=== PATIENT | female | born 1940 | race African-American/Black ===

== ENCOUNTER → 2016-12-14 | Outpatient (CLI) | payer MEDICARE ==
[2016-12-14 11:32] LABS: HEMOGLOBIN 12.8 g/dL (12.0-15.5); HGB HCT DIFFERENCE 0.4; MEAN CORPUSCULAR HEMOGLOBIN 33.3 pg (27.0-33.4); MEAN CORPUSCULAR HGB CONC 33.6 g/dL (32.0-36.0); MEAN CORPUSCULAR VOLUME 99 fl (80-97); RED BLOOD COUNT 3.84 10^6/uL (3.72-5.28); RED CELL DISTRIBUTION WIDTH 15.8 % (11.5-14.0); WHITE BLOOD COUNT 4.7 10^3/uL (4.0-10.5)
[2016-12-14 11:37] LABS: AMORPHOUS SEDIMENT,URINE TRACE /HPF; APPEARANCE,URINE CLOUDY; BILIRUBIN,URINE NEGATIVE (NEGATIVE); GLUCOSE, URINE NEGATIVE (NEGATIVE); KETONES,URINE NEGATIVE (NEGATIVE); LEUKOCYTE ESTERASE,URINE NEGATIVE (NEGATIVE); NITRITE,URINE NEGATIVE (NEGATIVE); PROTEIN,URINE 100 mg/dL (NEGATIVE); URINE SPECIFIC GRAVITY 1.016; UROBILINOGEN,URINE NEGATIVE mg/dL (<2.0)
[2016-12-14 11:55] LABS: ANION GAP 12 (5-19); BLOOD UREA NITROGEN 19 mg/dL (7-20); CALCIUM 9.5 mg/dL (8.4-10.2); CARBON DIOXIDE 27 mmol/L (22-30); CHLORIDE 105 mmol/L (98-107); CREATININE RESULT 0.99 mg/dL (0.52-1.25); GLUCOSE 83 mg/dL (75-110); POTASSIUM 4.4 mmol/L (3.6-5.0)
== END ==
LOC: OD 10:02
PROVIDERS: ATTEND Internal Medicine Nephrology
DX: I12.9 Hypertensive chronic kidney disease with stage 1 through stage 4 chronic kidney disease, or unspecified chronic kidney disease (principal); N18.2 Chronic kidney disease, stage 2 (mild); R80.9 Proteinuria, unspecified; E87.5 Hyperkalemia
CPT/HCPCS: 36415; 80048; 81001; 83735; 85027

== ENCOUNTER → 2017-08-17 | Outpatient (CLI) | payer MEDICARE ==
[2017-08-17 12:30] LABS: ABSOLUTE EOSINOPHILS # (AUTO) 0.1 10^3/uL (0.0-0.6); ABSOLUTE LYMPHOCYTES (AUTO) 1.8 10^3/uL (0.5-4.7); ABSOLUTE MONOCYTES (AUTO) 0.6 10^3/uL (0.1-1.4); ABSOLUTE NEUT (AUTO) 2.5 10^3/uL (1.7-8.2); BASOPHILS % (AUTO) 0.8 % (0-2); EOSINOPHILS % (AUTO) 2.5 % (0-6); LYMPHOCYTES % (AUTO) 35.3 % (13-45); MEAN CORPUSCULAR HEMOGLOBIN 33.9 pg (27.0-33.4); MEAN CORPUSCULAR HGB CONC 34.2 g/dL (32.0-36.0); MEAN CORPUSCULAR VOLUME 99 fl (80-97); RED BLOOD COUNT 3.83 10^6/uL (3.72-5.28); RED CELL DISTRIBUTION WIDTH 14.9 % (11.5-14.0); SEGMENTED NEUTROPHILS % (AUTO) 49.4 % (42-78); WHITE BLOOD COUNT 5.1 10^3/uL (4.0-10.5)
[2017-08-17 12:55] LABS: ALANINE AMINOTRANSFERASE 28 U/L (9-52); ALBUMIN 3.7 g/dL (3.5-5.0); ALKALINE PHOSPHATASE 102 U/L (38-126); ANION GAP 10 (5-19); ASPARTATE AMINO TRANSFERASE 44 U/L (14-36); BILIRUBIN,DIRECT 0.3 mg/dL (0.0-0.4); BILIRUBIN,TOTAL 0.6 mg/dL (0.2-1.3); BLOOD UREA NITROGEN 18 mg/dL (7-20); CALCIUM 9.4 mg/dL (8.4-10.2); CARBON DIOXIDE 29 mmol/L (22-30); CHLORIDE 105 mmol/L (98-107); CHOLESTEROL 144.76 mg/dL (0-200); CREATININE RESULT 1.02 mg/dL (0.52-1.25); Direct HDL 45 mg/dL (>40); GLUCOSE 82 mg/dL (75-110); POTASSIUM 3.9 mmol/L (3.6-5.0); SODIUM 143.8 mmol/L (137-145); TRIGLYCERIDES 90 mg/dL (<150)
[2017-08-17 13:06] LABS: DIRECT LDL 85 mg/dL (<100)
== END ==
LOC: OD 11:18
PROVIDERS: ATTEND Internal Medicine
DX: I12.9 Hypertensive chronic kidney disease with stage 1 through stage 4 chronic kidney disease, or unspecified chronic kidney disease (principal); N18.9 Chronic kidney disease, unspecified; J44.9 Chronic obstructive pulmonary disease, unspecified; E78.5 Hyperlipidemia, unspecified; R53.82 Chronic fatigue, unspecified
CPT/HCPCS: 36415; 80053; 80061; 84443; 85025

== ENCOUNTER → 2017-12-20 | Outpatient (CLI) | payer MEDICARE ==
[2017-12-20 11:45] LABS: HEMATOCRIT 41.7 % (36.0-47.0); MEAN CORPUSCULAR HEMOGLOBIN 33.7 pg (27.0-33.4); MEAN CORPUSCULAR HGB CONC 33.6 g/dL (32.0-36.0); MEAN CORPUSCULAR VOLUME 100 fl (80-97); PLATELET COUNT 242 10^3/uL (150-450); RED BLOOD COUNT 4.15 10^6/uL (3.72-5.28); RED CELL DISTRIBUTION WIDTH 15.2 % (11.5-14.0); WHITE BLOOD COUNT 5.1 10^3/uL (4.0-10.5)
[2017-12-20 11:51] LABS: APPEARANCE,URINE SLIGHTLY-CLOUDY; BILIRUBIN,URINE NEGATIVE (NEGATIVE); COLOR,URINE YELLOW; GLUCOSE, URINE NEGATIVE (NEGATIVE); KETONES,URINE NEGATIVE (NEGATIVE); LEUKOCYTE ESTERASE,URINE NEGATIVE (NEGATIVE); NITRITE,URINE NEGATIVE (NEGATIVE); PROTEIN,URINE >=500 mg/dL (NEGATIVE); URINE SPECIFIC GRAVITY 1.016; UROBILINOGEN,URINE NEGATIVE mg/dL (<2.0)
[2017-12-20 12:12] LABS: ANION GAP 5 (5-19); BLOOD UREA NITROGEN 19 mg/dL (7-20); CARBON DIOXIDE 33 mmol/L (22-30); CHLORIDE 105 mmol/L (98-107); GLUCOSE 85 mg/dL (75-110); POTASSIUM 5.1 mmol/L (3.6-5.0); SODIUM 143.2 mmol/L (137-145)
== END ==
LOC: OD 10:50
PROVIDERS: ATTEND Internal Medicine Nephrology
DX: N18.2 Chronic kidney disease, stage 2 (mild) (principal); R80.9 Proteinuria, unspecified; E87.5 Hyperkalemia
CPT/HCPCS: 36415; 80048; 81001; 83735; 85027

== ENCOUNTER → 2018-01-14 | Outpatient (CLI) | payer MEDICARE ==
[2018-01-14 10:55] LABS: APPEARANCE,URINE CLOUDY; BILIRUBIN,URINE NEGATIVE (NEGATIVE); COLOR,URINE AMBER; GLUCOSE, URINE NEGATIVE (NEGATIVE); KETONES,URINE NEGATIVE (NEGATIVE); LEUKOCYTE ESTERASE,URINE NEGATIVE (NEGATIVE); NITRITE,URINE NEGATIVE (NEGATIVE); PROTEIN,URINE >=500 mg/dL (NEGATIVE); UROBILINOGEN,URINE NEGATIVE mg/dL (<2.0)
[2018-01-14 10:59] LABS: ABSOLUTE EOSINOPHILS # (AUTO) 0.1 10^3/uL (0.0-0.6); ABSOLUTE LYMPHOCYTES (AUTO) 1.5 10^3/uL (0.5-4.7); ABSOLUTE MONOCYTES (AUTO) 0.5 10^3/uL (0.1-1.4); BASOPHILS % (AUTO) 0.8 % (0-2); EOSINOPHILS % (AUTO) 3.2 % (0-6); HEMATOCRIT 39.3 % (36.0-47.0); HEMOGLOBIN 13.2 g/dL (12.0-15.5); LYMPHOCYTES % (AUTO) 36.3 % (13-45); MEAN CORPUSCULAR HEMOGLOBIN 33.6 pg (27.0-33.4); MEAN CORPUSCULAR HGB CONC 33.7 g/dL (32.0-36.0); MEAN CORPUSCULAR VOLUME 100 fl (80-97); MONOCYTES % (AUTO) 11.8 % (3-13); PLATELET COUNT 245 10^3/uL (150-450); RED BLOOD COUNT 3.94 10^6/uL (3.72-5.28); RED CELL DISTRIBUTION WIDTH 15.2 % (11.5-14.0); SEGMENTED NEUTROPHILS % (AUTO) 47.9 % (42-78); TOTAL CELLS COUNTED % (AUTO) 100 %; WHITE BLOOD COUNT 4.2 10^3/uL (4.0-10.5)
[2018-01-14 11:26] LABS: URINE CREATININE 304.1 mg/dL (15-278)
[2018-01-14 11:29] LABS: ALANINE AMINOTRANSFERASE 26 U/L (9-52); ALBUMIN 3.6 g/dL (3.5-5.0); ALKALINE PHOSPHATASE 86 U/L (38-126); ANION GAP 12 (5-19); ASPARTATE AMINO TRANSFERASE 43 U/L (14-36); BILIRUBIN,DIRECT 0.3 mg/dL (0.0-0.4); BILIRUBIN,TOTAL 0.5 mg/dL (0.2-1.3); BLOOD UREA NITROGEN 26 mg/dL (7-20); CALCIUM 9.5 mg/dL (8.4-10.2); CARBON DIOXIDE 33 mmol/L (22-30); CHLORIDE 103 mmol/L (98-107); SODIUM 147.6 mmol/L (137-145); TOTAL PROTEIN 6.9 g/dL (6.3-8.2); URIC ACID 3.8 mg/dL (2.5-7.5)
[2018-01-14 11:31] LABS: GLUCOSE 87 mg/dL (75-110)
[2018-01-14 11:37] LABS: UR PRO/CREAT RATIO RESULT 1.1 mg/mg (0.0-0.2); URINE PROTEIN 340.5 mg/dL (<12)
[2018-01-15 08:40] LABS: HEPATITIS C VIRUS AB <0.1 s/co ratio (0.0-0.9)
[2018-01-16 06:22] LABS: HEPATITS B SURFACE ANTIGEN Negative (Negative)
[2018-01-18 17:37] LABS: ANTIMYELOPEROXIDASE (MPO) AB <9.0 U/mL (0.0-9.0); ANTIPROTEINASE 3 (PR-3) AB <3.5 U/mL (0.0-3.5); CYTOPLASMIC (C-ANCA) <1:20 titer (Neg:<1:20)
[2018-01-19 07:48] LABS: ATYPICAL PANCA <1:20 titer (Neg:<1:20); PERINUCLEAR (P-ANCA) <1:20 titer (Neg:<1:20)
== END ==
LOC: OD 10:01
PROVIDERS: ATTEND Internal Medicine Nephrology
DX: I12.9 Hypertensive chronic kidney disease with stage 1 through stage 4 chronic kidney disease, or unspecified chronic kidney disease (principal); N18.2 Chronic kidney disease, stage 2 (mild); R80.9 Proteinuria, unspecified; E83.42 Hypomagnesemia
CPT/HCPCS: 36415; 80053; 81001; 82570; 83516; 84156; 84550; 85025; 86038; 86225; 86256; 86803; 86804; 87340

== ENCOUNTER → 2018-02-18 | Outpatient (CLI) | payer MEDICARE ==
[2018-02-18 09:56] LABS: ABSOLUTE EOSINOPHILS # (AUTO) 0.1 10^3/uL (0.0-0.6); ABSOLUTE LYMPHOCYTES (AUTO) 1.3 10^3/uL (0.5-4.7); ABSOLUTE MONOCYTES (AUTO) 0.6 10^3/uL (0.1-1.4); ABSOLUTE NEUT (AUTO) 2.3 10^3/uL (1.7-8.2); BASOPHILS % (AUTO) 0.9 % (0-2); EOSINOPHILS % (AUTO) 2.9 % (0-6); HEMATOCRIT 39.5 % (36.0-47.0); HEMOGLOBIN 13.4 g/dL (12.0-15.5); LYMPHOCYTES % (AUTO) 29.1 % (13-45); MEAN CORPUSCULAR HEMOGLOBIN 33.7 pg (27.0-33.4); MEAN CORPUSCULAR VOLUME 99 fl (80-97); MONOCYTES % (AUTO) 13.4 % (3-13); PLATELET COUNT 252 10^3/uL (150-450); RED BLOOD COUNT 3.98 10^6/uL (3.72-5.28); RED CELL DISTRIBUTION WIDTH 14.3 % (11.5-14.0); SEGMENTED NEUTROPHILS % (AUTO) 53.7 % (42-78); TOTAL CELLS COUNTED % (AUTO) 100 %; WHITE BLOOD COUNT 4.3 10^3/uL (4.0-10.5)
[2018-02-18 10:11] LABS: AMORPHOUS SEDIMENT,URINE TRACE /HPF; APPEARANCE,URINE CLOUDY; BILIRUBIN,URINE NEGATIVE (NEGATIVE); COLOR,URINE YELLOW; GLUCOSE, URINE NEGATIVE (NEGATIVE); KETONES,URINE NEGATIVE (NEGATIVE); LEUKOCYTE ESTERASE,URINE NEGATIVE (NEGATIVE); NITRITE,URINE NEGATIVE (NEGATIVE); PROTEIN,URINE >=500 mg/dL (NEGATIVE); URINE SPECIFIC GRAVITY 1.014; UROBILINOGEN,URINE NEGATIVE mg/dL (<2.0)
[2018-02-18 10:20] LABS: ALANINE AMINOTRANSFERASE 20 U/L (9-52); ALBUMIN 3.8 g/dL (3.5-5.0); ALKALINE PHOSPHATASE 85 U/L (38-126); ANION GAP 10 (5-19); ASPARTATE AMINO TRANSFERASE 43 U/L (14-36); BILIRUBIN,DIRECT 0.2 mg/dL (0.0-0.4); BILIRUBIN,TOTAL 0.4 mg/dL (0.2-1.3); BLOOD UREA NITROGEN 21 mg/dL (7-20); CARBON DIOXIDE 31 mmol/L (22-30); CHLORIDE 105 mmol/L (98-107); GLUCOSE 87 mg/dL (75-110); POTASSIUM 4.1 mmol/L (3.6-5.0); SODIUM 146.3 mmol/L (137-145); TOTAL PROTEIN 7.4 g/dL (6.3-8.2); URIC ACID 8.2 mg/dL (2.5-7.5)
[2018-02-18 10:23] LABS: URINE CREATININE 201.7 mg/dL (15-278)
[2018-02-18 10:46] LABS: UR PRO/CREAT RATIO RESULT 1.6 mg/mg (0.0-0.2)
[2018-02-18 10:48] LABS: URINE PROTEIN 327.6 mg/dL (<12)
== END ==
LOC: OD 09:17
PROVIDERS: ATTEND Internal Medicine Nephrology
DX: I12.9 Hypertensive chronic kidney disease with stage 1 through stage 4 chronic kidney disease, or unspecified chronic kidney disease (principal); N18.2 Chronic kidney disease, stage 2 (mild); R80.9 Proteinuria, unspecified; E87.5 Hyperkalemia
CPT/HCPCS: 36415; 80053; 81001; 82570; 84156; 84550; 85025

== ENCOUNTER → 2018-05-20 | Outpatient (CLI) | payer MEDICARE ==
[2018-05-20 11:38] LABS: APPEARANCE,URINE SLIGHTLY-CLOUDY; BILIRUBIN,URINE NEGATIVE (NEGATIVE); COLOR,URINE YELLOW; GLUCOSE, URINE NEGATIVE (NEGATIVE); KETONES,URINE NEGATIVE (NEGATIVE); LEUKOCYTE ESTERASE,URINE NEGATIVE (NEGATIVE); NITRITE,URINE NEGATIVE (NEGATIVE); PROTEIN,URINE >=500 mg/dL (NEGATIVE); URINE SPECIFIC GRAVITY 1.013; UROBILINOGEN,URINE NEGATIVE mg/dL (<2.0)
[2018-05-20 11:41] LABS: ABSOLUTE BASOPHILS # (AUTO) 0.1 10^3/uL (0.0-0.2); ABSOLUTE EOSINOPHILS # (AUTO) 0.1 10^3/uL (0.0-0.6); ABSOLUTE LYMPHOCYTES (AUTO) 1.6 10^3/uL (0.5-4.7); ABSOLUTE MONOCYTES (AUTO) 0.6 10^3/uL (0.1-1.4); ABSOLUTE NEUT (AUTO) 2.4 10^3/uL (1.7-8.2); BASOPHILS % (AUTO) 1.1 % (0-2); EOSINOPHILS % (AUTO) 2.6 % (0-6); HEMOGLOBIN 13.5 g/dL (12.0-15.5); MEAN CORPUSCULAR HEMOGLOBIN 32.4 pg (27.0-33.4); MEAN CORPUSCULAR HGB CONC 33.7 g/dL (32.0-36.0); MEAN CORPUSCULAR VOLUME 96 fl (80-97); MONOCYTES % (AUTO) 12.4 % (3-13); PLATELET COUNT 289 10^3/uL (150-450); RED BLOOD COUNT 4.17 10^6/uL (3.72-5.28); RED CELL DISTRIBUTION WIDTH 14.1 % (11.5-14.0); SEGMENTED NEUTROPHILS % (AUTO) 49.9 % (42-78); TOTAL CELLS COUNTED % (AUTO) 100 %; WHITE BLOOD COUNT 4.8 10^3/uL (4.0-10.5)
[2018-05-20 12:04] LABS: ALANINE AMINOTRANSFERASE 15 U/L (9-52); ALBUMIN 3.9 g/dL (3.5-5.0); ALKALINE PHOSPHATASE 83 U/L (38-126); ANION GAP 6 (5-19); ASPARTATE AMINO TRANSFERASE 46 U/L (14-36); BILIRUBIN,DIRECT 0.3 mg/dL (0.0-0.4); BILIRUBIN,TOTAL 0.6 mg/dL (0.2-1.3); BLOOD UREA NITROGEN 19 mg/dL (7-20); CALCIUM 9.9 mg/dL (8.4-10.2); CARBON DIOXIDE 32 mmol/L (22-30); CHLORIDE 105 mmol/L (98-107); GLUCOSE 85 mg/dL (75-110); POTASSIUM 4.7 mmol/L (3.6-5.0); SODIUM 143.4 mmol/L (137-145); TOTAL PROTEIN 7.7 g/dL (6.3-8.2); URIC ACID 4.7 mg/dL (2.5-7.5)
[2018-05-20 12:15] LABS: URINE CREATININE 158.7 mg/dL (15-278)
[2018-05-20 12:18] LABS: UR PRO/CREAT RATIO RESULT 1.8 mg/mg (0.0-0.2)
== END ==
LOC: OD 10:20
PROVIDERS: ATTEND Internal Medicine Nephrology
DX: I12.9 Hypertensive chronic kidney disease with stage 1 through stage 4 chronic kidney disease, or unspecified chronic kidney disease (principal); N18.3 Chronic kidney disease, stage 3 (moderate); R80.9 Proteinuria, unspecified; E87.5 Hyperkalemia; M10.00 Idiopathic gout, unspecified site
CPT/HCPCS: 36415; 80053; 81001; 82570; 84156; 84550; 85025

== ENCOUNTER → 2018-12-19 | Outpatient (CLI) | payer MEDICARE ==
[2018-12-19 10:59] LABS: ABSOLUTE EOSINOPHILS # (AUTO) 0.1 10^3/uL (0.0-0.6); ABSOLUTE LYMPHOCYTES (AUTO) 1.5 10^3/uL (0.5-4.7); ABSOLUTE MONOCYTES (AUTO) 0.7 10^3/uL (0.1-1.4); ABSOLUTE NEUT (AUTO) 2.8 10^3/uL (1.7-8.2); BASOPHILS % (AUTO) 0.9 % (0-2); EOSINOPHILS % (AUTO) 2.8 % (0-6); HEMATOCRIT 36.8 % (36.0-47.0); HEMOGLOBIN 12.2 g/dL (12.0-15.5); LYMPHOCYTES % (AUTO) 28.6 % (13-45); MEAN CORPUSCULAR HEMOGLOBIN 31.6 pg (27.0-33.4); MEAN CORPUSCULAR HGB CONC 33.1 g/dL (32.0-36.0); MEAN CORPUSCULAR VOLUME 96 fl (80-97); PLATELET COUNT 282 10^3/uL (150-450); RED BLOOD COUNT 3.85 10^6/uL (3.72-5.28); RED CELL DISTRIBUTION WIDTH 16.3 % (11.5-14.0); SEGMENTED NEUTROPHILS % (AUTO) 54.7 % (42-78); TOTAL CELLS COUNTED % (AUTO) 100 %; WHITE BLOOD COUNT 5.1 10^3/uL (4.0-10.5)
[2018-12-19 11:14] LABS: APPEARANCE,URINE CLOUDY; BILIRUBIN,URINE NEGATIVE (NEGATIVE); COLOR,URINE AMBER; GLUCOSE, URINE NEGATIVE (NEGATIVE); KETONES,URINE NEGATIVE (NEGATIVE); LEUKOCYTE ESTERASE,URINE NEGATIVE (NEGATIVE); NITRITE,URINE NEGATIVE (NEGATIVE); PROTEIN,URINE >=500 mg/dL (NEGATIVE); URINE SPECIFIC GRAVITY 1.016
[2018-12-19 11:21] LABS: ALANINE AMINOTRANSFERASE 19 U/L (9-52); ALBUMIN 3.4 g/dL (3.5-5.0); ALKALINE PHOSPHATASE 103 U/L (38-126); ANION GAP 8 (5-19); ASPARTATE AMINO TRANSFERASE 43 U/L (14-36); BILIRUBIN,DIRECT 0.2 mg/dL (0.0-0.4); BILIRUBIN,TOTAL 0.3 mg/dL (0.2-1.3); BLOOD UREA NITROGEN 22 mg/dL (7-20); CALCIUM 9.4 mg/dL (8.4-10.2); CARBON DIOXIDE 31 mmol/L (22-30); CHLORIDE 103 mmol/L (98-107); GLUCOSE 80 mg/dL (75-110); SODIUM 142.3 mmol/L (137-145); TOTAL PROTEIN 7.3 g/dL (6.3-8.2); URIC ACID 3.3 mg/dL (2.5-7.5)
[2018-12-19 11:22] LABS: POTASSIUM 3.9 mmol/L (3.6-5.0)
[2018-12-19 11:23] LABS: URINE CREATININE 174.4 mg/dL (15-278)
[2018-12-19 11:36] LABS: UR PRO/CREAT RATIO RESULT 2.3 mg/mg (0.0-0.2); URINE PROTEIN 393.3 mg/dL (<12)
== END ==
LOC: OD 10:03
PROVIDERS: ATTEND Internal Medicine Nephrology
DX: I12.9 Hypertensive chronic kidney disease with stage 1 through stage 4 chronic kidney disease, or unspecified chronic kidney disease (principal); N18.2 Chronic kidney disease, stage 2 (mild); M10.00 Idiopathic gout, unspecified site; R80.9 Proteinuria, unspecified
CPT/HCPCS: 36415; 80053; 81001; 82570; 83735; 84156; 84550; 85025

== ENCOUNTER → 2019-06-13 | Outpatient (CLI) | payer MEDICARE ==
[2019-06-13 09:26] LABS: HEMATOCRIT 37.3 % (36.0-47.0); HEMOGLOBIN 12.4 g/dL (12.0-15.5); MEAN CORPUSCULAR HEMOGLOBIN 31.9 pg (27.0-33.4); MEAN CORPUSCULAR HGB CONC 33.4 g/dL (32.0-36.0); MEAN CORPUSCULAR VOLUME 96 fl (80-97); PLATELET COUNT 304 10^3/uL (150-450); RED CELL DISTRIBUTION WIDTH 16.7 % (11.5-14.0); WHITE BLOOD COUNT 4.2 10^3/uL (4.0-10.5)
[2019-06-13 09:50] LABS: ANION GAP 7 (5-19); BLOOD UREA NITROGEN 18 mg/dL (7-20); CALCIUM 9.6 mg/dL (8.4-10.2); CARBON DIOXIDE 32 mmol/L (22-30); CHLORIDE 102 mmol/L (98-107); GLUCOSE 89 mg/dL (75-110); PHOSPHORUS 4.3 mg/dL (2.5-4.5); POTASSIUM 4.2 mmol/L (3.6-5.0)
[2019-06-13 09:54] LABS: URINE CREATININE 213.8 mg/dL (15-278)
[2019-06-13 10:05] LABS: UR PRO/CREAT RATIO RESULT 2.2 mg/mg (0.0-0.2); URINE PROTEIN 474.4 mg/dL (<12)
== END ==
LOC: OD 09:00
PROVIDERS: ATTEND Physician Assistant Medical
DX: I12.9 Hypertensive chronic kidney disease with stage 1 through stage 4 chronic kidney disease, or unspecified chronic kidney disease (principal); N18.3 Chronic kidney disease, stage 3 (moderate); R80.9 Proteinuria, unspecified; E87.5 Hyperkalemia
CPT/HCPCS: 36415; 80048; 82570; 83970; 84100; 84156; 85027

== ENCOUNTER 2019-07-28 13:20 | Emergency (ER) | payer MEDICARE ==
[2019-07-28] MEDS ORDERED: NORMAL SALINE 1000 ML 1,000 ML IV ONE (13:52)
[2019-07-28 13:56] LABS: ABSOLUTE BASOPHILS # (AUTO) 0.1 10^3/uL (0.0-0.2); ABSOLUTE EOSINOPHILS # (AUTO) 0.1 10^3/uL (0.0-0.6); ABSOLUTE LYMPHOCYTES (AUTO) 1.5 10^3/uL (0.5-4.7); ABSOLUTE MONOCYTES (AUTO) 0.7 10^3/uL (0.1-1.4); ABSOLUTE NEUT (AUTO) 6.6 10^3/uL (1.7-8.2); BASOPHILS % (AUTO) 0.6 % (0-2); HEMATOCRIT 29.8 % (36.0-47.0); HEMOGLOBIN 9.6 g/dL (12.0-15.5); LYMPHOCYTES % (AUTO) 17.2 % (13-45); MEAN CORPUSCULAR HEMOGLOBIN 32.5 pg (27.0-33.4); MEAN CORPUSCULAR HGB CONC 32.3 g/dL (32.0-36.0); MEAN CORPUSCULAR VOLUME 101 fl (80-97); MONOCYTES % (AUTO) 7.5 % (3-13); PLATELET COUNT 193 10^3/uL (150-450); RED BLOOD COUNT 2.97 10^6/uL (3.72-5.28); RED CELL DISTRIBUTION WIDTH 17.3 % (11.5-14.0); SEGMENTED NEUTROPHILS % (AUTO) 73.7 % (42-78); TOTAL CELLS COUNTED % (AUTO) 100 %; WHITE BLOOD COUNT 8.9 10^3/uL (4.0-10.5)
[2019-07-28 14:08] LABS: INTERNATIONAL RATION (INR) 1.18; PROTHROMBIN TIME 15.1 SEC (11.4-15.4)
[2019-07-28 14:36] LABS: ALBUMIN 2.4 g/dL (3.5-5.0); ALKALINE PHOSPHATASE 66 U/L (38-126); ANION GAP 9 (5-19); ASPARTATE AMINO TRANSFERASE 31 U/L (14-36); BILIRUBIN,DIRECT 0.1 mg/dL (0.0-0.4); BILIRUBIN,TOTAL 0.3 mg/dL (0.2-1.3); BLOOD UREA NITROGEN 22 mg/dL (7-20); CALCIUM 8.4 mg/dL (8.4-10.2); CARBON DIOXIDE 24 mmol/L (22-30); CHLORIDE 114 mmol/L (98-107); GLUCOSE 121 mg/dL (75-110); TOTAL PROTEIN 5.5 g/dL (6.3-8.2)
--- NOTE | 2019-07-28 14:37 | RADIOLOGY REPORT (SQ) ---
EXAM DESCRIPTION: CHEST SINGLE VIEW COMPLETED DATE/TIME: 07/28/2019 2:21 pm REASON FOR STUDY: rectal bleeding COMPARISON: 12/18/2013. EXAM PARAMETERS: NUMBER OF VIEWS: One view. TECHNIQUE: Single frontal radiographic view of the chest acquired. RADIATION DOSE: NA LIMITATIONS: None. FINDINGS: LUNGS AND PLEURA: No opacities, masses or pneumothorax. No pleural effusion. MEDIASTINUM AND HILAR STRUCTURES: No masses. Contour normal. HEART AND VASCULAR STRUCTURES: Heart upper limits of normal in size. Normal vasculature. BONES: No acute findings. HARDWARE: None in the chest. OTHER: No other significant finding. IMPRESSION: NO ACUTE RADIOGRAPHIC FINDING IN THE CHEST. TECHNICAL DOCUMENTATION: JOB ID: [id number] [employer]- All Rights Reserved Reading location - IP/workstation name: [email or web address]
--- NOTE | 2019-07-28 14:57 | ER Document Report ---
ED General - General Chief Complaint: Rectal Bleeding Stated Complaint: HYPOTENSION Time Seen by Provider: 07/28/19 14:25 Primary Care Provider: DIPESH GILLILAND MD [Primary Care Provider] - Follow up as needed TRAVEL OUTSIDE OF THE [place] IN LAST 30 DAYS: No - HPI Notes: 79-year-old female presenting for evaluation of rectal bleeding and presyncope. This lady says she had a lower GI bleed a number years ago which apparently did not require surgery or transfusion. She does no specific source of bleed. She is taking aspirin at this time and no other type of blood thinning medication. She awakened around 1 AM this morning and at that time had some lower abdominal cramping and passed a large amount of bright red blood. Since then she is continued to pass large maroon clots. She continues to deny abdominal pain. She felt weak as though she was going to lose consciousness. EMS was called upon arrival she had a blood pressure 75 systolic. IV access was obtained and the patient received a 1 L bolus of normal saline. Upon arrival here she had a systolic pressure of 110. She is relatively bradycardic in the 60s but is noted to be on an oral beta-carmen. Patient denies vomiting. She denies nausea. She denies any known history of peptic ulcer disease or neoplasm. She denies any known history of diverticulosis. - Related Data Allergies/Adverse Reactions: No Known Allergies Allergy (Unverified 07/28/19 14:09) Past Medical History - Social History Smoking Status: Former Smoker Chew tobacco use (# tins/day): No Frequency of alcohol use: None Drug Abuse: None Family History: Reviewed & Not Pertinent Patient has suicidal ideation: No Patient has homicidal ideation: No - Past Medical History Cardiac Medical History: Reports: Hx Hypertension Musculoskeletal Medical History: Reports Hx Arthritis Traumatic Medical History: Reports: Hx Fractures Past Surgical History: Reports: Hx Hysterectomy, Hx Orthopedic Surgery - Immunizations Immunizations up to date: Yes Hx Diphtheria, Pertussis, Tetanus Vaccination: Yes Review of Systems - Review of Systems Notes: Constitutional: Negative for fever. HENT: Negative for sore throat. Eyes: Negative for visual changes. Cardiovascular: Negative for chest pain. Respiratory: Negative for shortness of breath. Gastrointestinal: As per HPI. Genitourinary: Negative for dysuria. Musculoskeletal: Negative for back pain. Skin: Negative for rash. Neurological: Presyncope as noted in HPI. Negative for headaches, weakness or numbness. 10 point ROS negative except as marked above and in HPI. Physical Exam - Vital signs Vitals: Temp 97.7 F 07/28/19 13:45 Notes: GENERAL: Well-developed well-nourished appearing anxious but otherwise n no acute distress. SKIN: Good turgor no rashes. HEAD: Normocephalic atraumatic. EYES: PERRLA. Conjunctivae and sclerae clear. EARS: CANALS AND TMS CLEAR. NOSE: CLEAR. MOUTH: Moist mucosa. Good dentition. No stridor or edema. No drooling. NECK: Supple. No masses or thyromegaly. No adenopathy. Carotids 2+ without bruits. No JVD. BACK: Symmetrical without tenderness. CHEST: Respirations unlabored. Breath sounds clear and symmetrical. HEART: Regular rhythm. No murmur gallop or rub. ABDOMEN: Soft nontender without masses, organomegaly or rebound. Bowel sounds normally active. No bruits. GENITALIA: Normal female RECTAL: Large maroon clots present. No palpable mass on digital exam. EXTREMITIES: No edema. No calf tenderness. Cap refill less than 1.5 seconds. Dorsalis pedis and posterior tibial pulses 3+ and symmetrical. NEUROLOGICAL: GCS 15. Alert and oriented x3. Sensorimotor and cerebellar function normal. Cranial nerves intact. Course - Re-evaluation Re-evalutation: 07/28/19 14:58 Patient has been kept n.p.o. since arrival. We placed 2 large-bore IVs and a Aj catheter. Type and screen is obtained. Her initial hemoglobin was 9.8 g with a normal platelet count and normal white count and her INR is also normal. I found that we did not have GI available [employer] today. I spoke with the general surgeon high school combination teacher Dr. Arlyn Santiago who recommended transfer of the patient at this time. Patient preferred to go to [facility]. I spoke with the registered medical assistant on-call Dr. iDpesh Quesada and he accepted the patient for transfer on behalf of his attending Dr. Rider. Patient's vital signs have remained stable here and we will be prepared to transfuse this lady if her clinical situation changes. - Vital Signs Vital signs: Temp Pulse Resp BP Pulse Ox 97.7 F 96 07/28/19 13:45 07/28/19 13:52 - Laboratory Result Diagrams: 07/28/19 13:30 07/28/19 13:30 Laboratory results interpreted by me: 07/28/19 07/28/19 13:30 13:30 RBC 2.97 L Hgb 9.6 L Hct 29.8 L MCV 101 H RDW 17.3 H Sodium 146.5 H Chloride 114 H BUN 22 H Creatinine 1.49 H Est GFR ( Amer) 41 L Est GFR (MDRD) Non-Af 34 L Glucose 121 H Total Protein 5.5 L Albumin 2.4 L - EKG Interpretation by Me Additional EKG results interpreted by me: 07/28/19 14:57 Normal sinus rhythm. Motion artifact. No acute ST changes. Occasional PVCs. Discharge - Discharge Clinical Impression: Acute lower gastrointestinal bleeding Condition: Good Disposition: [facility] Referrals: DIPESH GILLILAND MD [Primary Care Provider] - Follow up as needed
[2019-07-28 16:32] LABS: ABSOLUTE MONOCYTES (AUTO) 0.2 10^3/uL (0.1-1.4); ABSOLUTE NEUT (AUTO) 6.5 10^3/uL (1.7-8.2); BASOPHILS % (AUTO) 0.3 % (0-2); EOSINOPHILS % (AUTO) 0.3 % (0-6); HEMATOCRIT 27.7 % (36.0-47.0); HEMOGLOBIN 9.2 g/dL (12.0-15.5); LYMPHOCYTES % (AUTO) 13.3 % (13-45); MEAN CORPUSCULAR HEMOGLOBIN 32.9 pg (27.0-33.4); MEAN CORPUSCULAR HGB CONC 33.1 g/dL (32.0-36.0); MEAN CORPUSCULAR VOLUME 99 fl (80-97); MONOCYTES % (AUTO) 3.2 % (3-13); PLATELET COUNT 187 10^3/uL (150-450); RED BLOOD COUNT 2.79 10^6/uL (3.72-5.28); RED CELL DISTRIBUTION WIDTH 16.9 % (11.5-14.0); SEGMENTED NEUTROPHILS % (AUTO) 82.9 % (42-78); TOTAL CELLS COUNTED % (AUTO) 100 %; WHITE BLOOD COUNT 7.8 10^3/uL (4.0-10.5)
[2019-07-28 16:38] VITALS: BP 119/62
--- NOTE | 2019-07-29 11:51 | EKG REPORT ---
SEVERITY:- ABNORMAL ECG - CONSIDER ANTEROSEPTAL INFARCT ABNORMAL T, CONSIDER ISCHEMIA, DIFFUSE LEADS SINUS BRADYCARDIA BASELINE ARTIFACT.PVC : Confirmed by: Elaina Arenas MD 29-Jul-2019 11:50:30
== END 2019-07-28 16:45 | disposition short-term general hospital (02) ==
LOC: ER 13:20
DX: K92.2 Gastrointestinal hemorrhage, unspecified (principal); R55 Syncope and collapse; I49.3 Ventricular premature depolarization; I10 Essential (primary) hypertension; Z79.899 Other long term (current) drug therapy; Z79.82 Long term (current) use of aspirin; Z87.891 Personal history of nicotine dependence
CPT/HCPCS: 93005; 99285; 51702; 86900; 86901; 36415; 86850; 85025; 85610; 80053; 71045; 93010; J7030

== ENCOUNTER → 2019-08-14 | Outpatient (CLI) | payer MEDICARE ==
[2019-08-14 15:56] LABS: ABSOLUTE BASOPHILS # (AUTO) 0.1 10^3/uL (0.0-0.2); ABSOLUTE EOSINOPHILS # (AUTO) 0.2 10^3/uL (0.0-0.6); ABSOLUTE LYMPHOCYTES (AUTO) 1.7 10^3/uL (0.5-4.7); ABSOLUTE MONOCYTES (AUTO) 0.8 10^3/uL (0.1-1.4); ABSOLUTE NEUT (AUTO) 4.6 10^3/uL (1.7-8.2); BASOPHILS % (AUTO) 0.8 % (0-2); EOSINOPHILS % (AUTO) 2.5 % (0-6); HEMATOCRIT 35.2 % (36.0-47.0); HEMOGLOBIN 11.8 g/dL (12.0-15.5); MEAN CORPUSCULAR HEMOGLOBIN 30.5 pg (27.0-33.4); MEAN CORPUSCULAR HGB CONC 33.5 g/dL (32.0-36.0); MONOCYTES % (AUTO) 10.3 % (3-13); PLATELET COUNT 437 10^3/uL (150-450); RED BLOOD COUNT 3.87 10^6/uL (3.72-5.28); SEGMENTED NEUTROPHILS % (AUTO) 63.4 % (42-78); TOTAL CELLS COUNTED % (AUTO) 100 %; WHITE BLOOD COUNT 7.3 10^3/uL (4.0-10.5)
[2019-08-14 15:59] LABS: MEAN CORPUSCULAR VOLUME 91 fl (80-97)
== END ==
LOC: OD 15:14
PROVIDERS: ATTEND Internal Medicine
DX: K92.2 Gastrointestinal hemorrhage, unspecified (principal); I12.9 Hypertensive chronic kidney disease with stage 1 through stage 4 chronic kidney disease, or unspecified chronic kidney disease; N18.9 Chronic kidney disease, unspecified
CPT/HCPCS: 36415; 85025

== ENCOUNTER → 2019-10-19 | Outpatient (CLI) | payer MEDICARE ==
--- NOTE | 2019-10-19 11:01 | RADIOLOGY REPORT (SQ) ---
EXAM DESCRIPTION: CTA CHEST COMPLETED DATE/TIME: 10/19/2019 10:48 am REASON FOR STUDY: R06.09 OTHER FORMS OF DYSPNEA/R09.02 HYPOXEMIA R06.09 OTHER FORMS OF DYSPNEA R09. 02 HYPOXEMIA I26.99 OTHER PULMONARY EMBOLISM WITHOUT ACUTE COR PULMONALE COMPARISON: CT chest 07/28/2019 TECHNIQUE: CT scan of the chest performed using helical scanning technique with dynamic intravenous contrast injection. Images reviewed with lung, soft tissue and bone windows. Reconstructed coronal and sagittal MPR images reviewed. Additional 3 dimensional post-processing performed to develop Maximal Intensity Projection images (CO P). All images stored on PACS. All CT scanners at this facility use dose modulation, iterative reconstruction, and/or weight based d osing when appropriate to reduce radiation dose to as low as reasonably achievable (ALARA). [facility]: Dose Right [facility]: CareDose [facility]: Dose Right [facility]: Teradose 4D [facility]: Single Digits CONTRAST TYPE AND DOSE: contrast/concentration: Isovue 350.00 mg/ml; Total Contrast Delivered: 46.0 ml; Total Saline Delivered: 76.0 ml Contrast bolus optimized for the pulmonary arteries. Not diagnostic for the aorta. RENAL FUNCTION: Creatinine 1.3 RADIATION DOSE: CT Rad equipment meets quality standard of care and radiation dose reduction techniq ues were employed. CTDIvol: 6.1 - 11.3 mGy. DLP: 284 mGy-cm. . LIMITATIONS: None. FINDINGS: LUNGS AND PLEURA: Obstructive lung disease is present with hyperinflation and hyperlucency . No focal infiltrates. No pleural effusion. No pneumothorax. No worrisome pulmonary nodules. AORTA AND GREAT VESSELS: No aneurysm. Contrast bolus not optimized for the aorta. HEART: No pericardial effusion. Moderate to marked coronary artery calcifications. PULMONARY ARTERIES: No emboli visualized in the main pulmonary arteries or the segmental branches. HILAR AND MEDIASTINAL STRUCTURES: No identified masses or abnormal nodes. HARDWARE: None in the chest. UPPER ABDOMEN: No significant findings. Limited exam. THYROID AND OTHER SOFT TISSUES: No masses. No adenopathy. BONES: No acute or significant finding. 3D MIPS: Confirm above findings. OTHER: No other significant finding. IMPRESSION: No CT angio evidence of acute pulmonary emboli Obstructive lung disease Coronary artery calcifications COMMENT: Quality ID # [id number]: Final reports with documentation of one or more dose reduction techniques (e.g., Automated exposure control, adjustment of the mA and/or kV according to patient size, use of iterative reconstruction technique) TECHNICAL DOCUMENTATION: JOB ID: [id number] [employer]- All Rights Reserved Reading location - IP/workstation name: [email or web address]
== END ==
LOC: RAD 10:25
PROVIDERS: ATTEND Internal Medicine
DX: I26.99 Other pulmonary embolism without acute cor pulmonale (principal); I25.10 Atherosclerotic heart disease of native coronary artery without angina pectoris; J44.9 Chronic obstructive pulmonary disease, unspecified; R06.09 Other forms of dyspnea; R09.02 Hypoxemia
CPT/HCPCS: 71275; 82565

== ENCOUNTER 2020-01-23 11:58 | Inpatient (IN) | payer MEDICARE ==
[2020-01-23] MEDS ORDERED: NORMAL SALINE 1000 ML 1,000 ML IV ONE (12:42)
[2020-01-23 13:06] LABS: ABSOLUTE EOSINOPHILS # (AUTO) 0.1 10^3/uL (0.0-0.6); ABSOLUTE LYMPHOCYTES (AUTO) 1.3 10^3/uL (0.5-4.7); ABSOLUTE MONOCYTES (AUTO) 0.4 10^3/uL (0.1-1.4); ABSOLUTE NEUT (AUTO) 2.7 10^3/uL (1.7-8.2); BASOPHILS % (AUTO) 0.8 % (0-2); EOSINOPHILS % (AUTO) 1.8 % (0-6); HEMATOCRIT 29.7 % (36.0-47.0); MEAN CORPUSCULAR HEMOGLOBIN 32.8 pg (27.0-33.4); MEAN CORPUSCULAR HGB CONC 33.5 g/dL (32.0-36.0); MEAN CORPUSCULAR VOLUME 98 fl (80-97); MONOCYTES % (AUTO) 8.8 % (3-13); PLATELET COUNT 243 10^3/uL (150-450); RED BLOOD COUNT 3.04 10^6/uL (3.72-5.28); RED CELL DISTRIBUTION WIDTH 17.2 % (11.5-14.0); SEGMENTED NEUTROPHILS % (AUTO) 59.6 % (42-78); TOTAL CELLS COUNTED % (AUTO) 100 %; WHITE BLOOD COUNT 4.5 10^3/uL (4.0-10.5)
[2020-01-23 13:08] LABS: INTERNATIONAL RATION (INR) 1.12; PARTIAL THROMBOPLASTIN TIME 24.6 SEC (23.5-35.8); PROTHROMBIN TIME 14.5 SEC (11.4-15.4)
[2020-01-23 13:12] LABS: ALBUMIN 2.8 g/dL (3.5-5.0); ALKALINE PHOSPHATASE 71 U/L (38-126); ANION GAP 5 (5-19); ASPARTATE AMINO TRANSFERASE 33 U/L (14-36); BILIRUBIN,TOTAL 0.3 mg/dL (0.2-1.3); BLOOD UREA NITROGEN 23 mg/dL (7-20); CALCIUM 8.7 mg/dL (8.4-10.2); CARBON DIOXIDE 26 mmol/L (22-30); CHLORIDE 106 mmol/L (98-107); GLUCOSE 145 mg/dL (75-110); POTASSIUM 4.2 mmol/L (3.6-5.0); TOTAL PROTEIN 5.9 g/dL (6.3-8.2)
[2020-01-23 14:42] LABS: ABSOLUTE LYMPHOCYTES (AUTO) 1.1 10^3/uL (0.5-4.7); ABSOLUTE MONOCYTES (AUTO) 0.4 10^3/uL (0.1-1.4); ABSOLUTE NEUT (AUTO) 4.5 10^3/uL (1.7-8.2); BASOPHILS % (AUTO) 0.6 % (0-2); EOSINOPHILS % (AUTO) 0.6 % (0-6); HEMATOCRIT 27.6 % (36.0-47.0); HEMOGLOBIN 9.4 g/dL (12.0-15.5); LYMPHOCYTES % (AUTO) 18.8 % (13-45); MEAN CORPUSCULAR HEMOGLOBIN 33.1 pg (27.0-33.4); MEAN CORPUSCULAR VOLUME 97 fl (80-97); MONOCYTES % (AUTO) 6.6 % (3-13); PLATELET COUNT 220 10^3/uL (150-450); RED BLOOD COUNT 2.83 10^6/uL (3.72-5.28); RED CELL DISTRIBUTION WIDTH 16.9 % (11.5-14.0); SEGMENTED NEUTROPHILS % (AUTO) 73.4 % (42-78); TOTAL CELLS COUNTED % (AUTO) 100 %; WHITE BLOOD COUNT 6.1 10^3/uL (4.0-10.5)
--- NOTE | 2020-01-23 14:58 | ER Document Report ---
ED GI Bleed / Rectal Pain - General Chief Complaint: Bloody Stools Stated Complaint: BLOODY STOOLS Time Seen by Provider: 01/23/20 12:31 Primary Care Provider: DIPESH GILLILAND MD [Primary Care Provider] - Follow up as needed Notes: This 80-year-old female presents to the emergency department with a history of episode of bright red blood per rectum this morning. She states that she went to the bathroom and noted bright red blood which began. She has had a saturation of her pants with blood. She denies nausea vomiting or significant abdominal pain. EMS was called and found the patient to be hypotensive with blood pressure of 88/57. IV was started patient was bolused 500 cc of normal saline. It is noted she had bright red blood in her stools this morning episodes of diarrhea yesterday. She notes that she has had a episode of GI bleeding in the past however evaluation with upper and lower endoscopy was nondiagnostic. TRAVEL OUTSIDE OF THE [place] IN LAST 30 DAYS: No - Related Data Allergies/Adverse Reactions: No Known Allergies Allergy (Unverified 07/28/19 14:09) Past Medical History - Social History Smoking Status: Former Smoker Frequency of alcohol use: None Drug Abuse: None Family History: Reviewed & Not Pertinent Patient has homicidal ideation: No - Past Medical History Cardiac Medical History: Reports: Hx Hypercholesterolemia, Hx Hypertension Pulmonary Medical History: Reports: Hx COPD Musculoskeletal Medical History: Reports Hx Arthritis Traumatic Medical History: Reports: Hx Fractures Past Surgical History: Reports: Hx Hysterectomy, Hx Orthopedic Surgery - Immunizations Immunizations up to date: Yes Hx Diphtheria, Pertussis, Tetanus Vaccination: Yes Review of Systems - Review of Systems Notes: Constitutional: Negative for fever. HENT: Negative for sore throat. Eyes: Negative for visual changes. Cardiovascular: Negative for chest pain. Respiratory: Negative for shortness of breath. Gastrointestinal: + GI bleed Genitourinary: Negative for dysuria. Musculoskeletal: Negative for back pain. Skin: Negative for rash. Neurological: Negative for headaches, weakness or numbness. 10 point ROS negative except as marked above and in HPI. Physical Exam - Vital signs Vitals: Temp 97.8 F 01/23/20 11:59 - Notes Notes: PHYSICAL EXAMINATION: Physical Exam: General: Elderly female in no acute distress HEENT: NC/AT, pupils equal round and reactive to light, MM moist,nares clear, oropharynx clear, airway patent Neck: supple, no adenopathy, no masses. Good range of motion Lungs: clear, no wheezing, no rales no rhonchi CVS: Regular rate and rhythm no murmur gallop or rub Abdomen: Soft, active, nontender, no masses, no hepatosplenomegaly, no exam: Bright red blood, no masses. Ext: No edema, clubbing or cyanosis. Neuro: Alert and responsive, moving all 4 extremities on command, cranial nerves intact, no focal findings Skin: Intact no open lesions, no rash PSYCH: Normal mood, normal affect. Course - Re-evaluation Re-evalutation: 01/23/20 17:14 Patient has been hemodynamically stable in the emergency department. She was given a bolus of normal saline by EMS for initial hypotension. Hemoglobin noted to be 10.0/29 point 7 repeat 3 hours later 9.4/27.6 the patient will be brought into the hospital for close monitoring and GI consultation. I discussed the patient with Ivan chang PA-C for the hospitalist service, Dr. Nielsen was called the patient results and presentation discussed in detail. She will admit the patient to the [facility] for further evaluation and treatment. - Vital Signs Vital signs: Temp Pulse Resp BP Pulse Ox 97.8 F 26 H 134/71 H 95 01/23/20 11:59 01/23/20 14:29 01/23/20 14:30 01/23/20 14:39 - Laboratory Result Diagrams: 01/23/20 14:04 01/23/20 12:05 Laboratory results interpreted by me: 01/23/20 01/23/20 01/23/20 12:05 12:05 14:04 RBC 3.04 L 2.83 L Hgb 10.0 L 9.4 L Hct 29.7 L 27.6 L MCV 98 H RDW 17.2 H 16.9 H BUN 23 H Creatinine 1.41 H Est GFR ( Amer) 43 L Est GFR (MDRD) Non-Af 36 L Glucose 145 H Total Protein 5.9 L Albumin 2.8 L - Diagnostic Test Radiology reviewed: Image reviewed, Reports reviewed - CT abdomen and pelvis with oral and IV contrast: No acute intra-abdominal findings. Critical Care Note - Critical Care Note Total time excluding time spent on procedures (mins): 45 - Critical care time spent obtaining history from patient or surrogate, discussions with consultants, development of treatment plan with patient or surrogate, evaluation of patient's response to treatment, examination of patient, ordering and performing treatments and interventions, ordering and review of laboratory studies, re-evaluation of patient's condition, ordering and review of radiographic studies and review of old charts Discharge - Discharge Clinical Impression: Lower GI bleed Anemia Qualifiers: Anemia type: other cause Other causes of anemia: other cause, not classified Qualified Code(s): D64.89 - Other specified anemias Condition: Good Disposition: ADMITTED INPATIENT Admitting Provider: Morales (Hospitalist) Unit Admitted: IMCU Referrals: DIPESH GILLILAND MD [Primary Care Provider] - Follow up as needed
--- NOTE | 2020-01-23 15:43 | RADIOLOGY REPORT (SQ) ---
EXAM DESCRIPTION: CT ABD/PELVIS WITH IV ORAL IMAGES COMPLETED DATE/TIME: 01/23/2020 3:27 pm REASON FOR STUDY: Lower GI bleed COMPARISON: None. TECHNIQUE: CT scan of the abdomen and pelvis performed using helical scanning technique with dynamic intravenous contrast injection. No oral contrast. Images reviewed with lung, soft tissue, and bone windows. Reconstructed coronal and sagittal MPR images reviewed. Delayed images for evaluation of the urinary system also acquired. All images stored on PACS. All CT scanners at this facility use dose modulation, iterative reconstruction, and/or weight based d osing when appropriate to reduce radiation dose to as low as reasonably achievable (ALARA). [facility]: Dose Right [facility]: CareDose [facility]: Dose Right [facility]: Teradose 4D [facility]: [employer] CONTRAST TYPE AND DOSE: contrast/concentration: Isovue 350.00 mg/ml; Total Contrast Delivered: 78.0 ml; Total Saline Delivered: 67.0 ml RENAL FUNCTION: BUN 23, creatinine 1.41 RADIATION DOSE: CT Rad equipment meets quality standard of care and radiation dose reduction techniq ues were employed. CTDIvol: 6.4 - 9.0 mGy. DLP: 777 mGy-cm.. LIMITATIONS: None. FINDINGS: LOWER CHEST: No significant findings. No nodules or infiltrates. Small hiatal hernia. LIVER: Normal size. No masses. There is mild intrahepatic biliary ductal dilatation. The common bi le duct measures up to 9.8 mm. No stones or obvious mass. SPLEEN: Normal size. No focal lesions. PANCREAS: No masses. No significant calcifications. No adjacent inflammation or peripancreatic fluid collections. Pancreatic duct not dilated. GALLBLADDER: No identified stones by CT criteria. No inflammatory changes to suggest cholecystitis. ADRENAL GLANDS: No significant masses or asymmetry. RIGHT KIDNEY AND URETER: Numerous small hypoattenuating lesions most consistent with cysts. Some are too small to accurately characterize. No significant calcifications. No hydronephrosis or hydrou reter. LEFT KIDNEY AND URETER: Numerous small hypoattenuating lesions most likely cysts. Most of which are too small to accurately characterize. No significant calcifications. No hydronephrosis or hydrour eter. AORTA AND VESSELS: Atherosclerotic change. Abdominal aorta is slightly dilated at the diaphragmatic hiatus measured 3.2 x 3.2 cm. Infrarenal aorta measures up to 2.9 x 2.7 cm. RETROPERITONEUM: No retroperitoneal adenopathy, hemorrhage or masses. BOWEL AND PERITONEAL CAVITY: No masses or inflammatory changes. No free fluid or peritoneal masses. APPENDIX: Not visualized. PELVIS: No mass. No free fluid. Normal bladder. ABDOMINAL WALL: No masses. No hernias. BONES: No significant findings. OTHER: No other significant finding. IMPRESSION: No acute findings in the abdomen or pelvis. Common bile duct is dilated measuring up to 9.8 mm. No definite stone. Distal stricture cannot be e xcluded. Further evaluation with MRCP or ERCP may be helpful for further evaluation. 3. Atherosclerotic change of the abdominal aorta. At the diaphragmatic hiatus the diameter is measu red at 3.2 x 3.2 cm. Distal aorta measures up to 2.9 x 2.7 cm. Please see below for recommended fol low-up. COMMENT: AAA Size: Follow-up Recommendation 3.0-3.4 cm Every 3 years *Based upon the Society for Vascular Surgery Guidelines: J Vasc Surg. 2009 Oct;50(4 Suppl):S2-49 *For aortas of maximum diameter of 2.6-2.9 cm meeting the criteria for AAA (?1.5 x proximal normal se gment) TECHNICAL DOCUMENTATION: JOB ID: [id number] Quality ID # [id number]: Final reports with documentation of one or more dose reduction techniques (e.g., Au tomated exposure control, adjustment of the mA and/or kV according to patient size, use of iterative reconstruction technique) 2010 [employer]- All Rights Reserved Reading location - IP/workstation name: [email or web address]
--- NOTE | 2020-01-23 17:38 | PDOC CONSULTATION ---
Consultation Consult Date: 01/23/20 Provider Consulted: JUNITO STILES Consult reason:: GI rectal bleeding History of Present Illness Admission Date/PCP: 01/23/20 17:29 DIPESH GILLILAND MD History of Present Illness: CARTER WEINER is a 80 year old female presented to the ED with rectal bleeding she says that she has had an EGD and colonoscopy done in the past but it was non diagnostic Hgb is stable I cannot locate any GI procedure reports in the system and likely done at an outside location symptoms are preceded with diarrhea has been admitted will need colonoscopy could be diverticular since painless will need to have close monitoring of H/H and transfusion as necessary she will need a colonoscopy and will schedule her in the OR as needed no abdominal pain prior , but other considerations would be ischemic colitis Past Medical History Cardiac Medical History: Reports: Hyperlipidema, Hypertension Pulmonary Medical History: Reports: Chronic Obstructive Pulmonary Disease (COPD) Musculoskeltal Medical History: Reports: Arthritis Past Surgical History Past Surgical History: Reports: Hysterectomy, Orthopedic Surgery Social History Smoking Status: Former Smoker Family History Family History: Reviewed & Not Pertinent Parental Family History Reviewed: Yes Children Family History Reviewed: Unknown Sibling(s) Family History Reviewed.: Unknown Medication/Allergy Home Medications: Allopurinol [Zyloprim 300 mg Tablet] 1 cap PO DAILY 07/28/19 Amlodipine Besylate [Norvasc 10 mg Tablet] 1 tab PO DAILY 07/28/19 Aspirin [Ecotrin 81 mg EC Tablet] 81 mg PO DAILY 07/28/19 Atenolol 0.5 tab PO DAILY 07/28/19 Magnesium Oxide [Mag-Ox 400 mg Tablet] 1 tab PO DAILY 07/28/19 Pravastatin Sodium 1 tab PO DAILY 07/28/19 Ramipril [Altace 10 mg Capsule] 2 cap PO DAILY 07/28/19 Allergies/Adverse Reactions: No Known Allergies Allergy (Unverified 07/28/19 14:09) Review of Systems Constitutional: ABSENT: fever(s), headache(s), night sweats, weakness Eyes: ABSENT: visual disturbances Ears: ABSENT: hearing changes Nose, Mouth, and Throat: ABSENT: mouth pain, sore throat Respiratory: ABSENT: dyspnea, hemoptysis Gastrointestinal: ABSENT: nausea, vomiting Genitourinary: ABSENT: dysuria, hematuria Musculoskeletal: ABSENT: deformity, joint swelling Neurological: ABSENT: syncope, tingling, tremor(s), vertigo Endocrine: ABSENT: polydipsia, polyphagia, polyuria Hematologic/Lymphatic: ABSENT: easy bruising Physical Exam Vital Signs: Temp Pulse Resp BP Pulse Ox 97.8 F 26 H 134/71 H 95 01/23/20 11:59 01/23/20 14:29 01/23/20 14:30 01/23/20 14:39 Intake & Output 01/22/20 01/23/20 01/24/20 06:59 06:59 06:59 Weight 67.7 kg General appearance: ABSENT: mild distress, well-developed, well-nourished Head exam: ABSENT: atraumatic, normocephalic Eye exam: PRESENT: EOMI, PERRLA. ABSENT: nystagmus, periorbital swelling, scleral icterus Neck exam: ABSENT: meningismus, tenderness, thyromegaly Respiratory exam: PRESENT: symmetrical, unlabored. ABSENT: tachypnea, wheezes Cardiovascular exam: PRESENT: RRR, +S1, +S2 GI/Abdominal exam: PRESENT: soft. ABSENT: Hui's sign, rebound, rigid Extremities exam: ABSENT: joint swelling Musculoskeletal exam: PRESENT: full ROM Neurological exam: PRESENT: alert, awake, CN II-XII grossly intact Skin exam: PRESENT: normal color. ABSENT: mottled, pallor, urticaria, vesicles Results Laboratory Results: 01/23/20 14:04 01/23/20 12:05 01/23/20 01/23/20 01/23/20 12:05 12:05 12:05 WBC 4.5 RBC 3.04 L Hgb 10.0 L Hct 29.7 L MCV 98 H MCH 32.8 MCHC 33.5 RDW 17.2 H Plt Count 243 Seg Neutrophils % 59.6 Sodium 137.3 Potassium 4.2 Chloride 106 Carbon Dioxide 26 Anion Gap 5 BUN 23 H Creatinine 1.41 H Est GFR ( Amer) 43 L Glucose 145 H Calcium 8.7 Total Bilirubin 0.3 AST 33 Alkaline Phosphatase 71 Total Protein 5.9 L Albumin 2.8 L Blood Type A POSITIVE Antibody Screen NEGATIVE 01/23/20 14:04 WBC 6.1 RBC 2.83 L Hgb 9.4 L Hct 27.6 L MCV 97 MCH 33.1 MCHC 34.0 RDW 16.9 H Plt Count 220 Seg Neutrophils % 73.4 Sodium Potassium Chloride Carbon Dioxide Anion Gap BUN Creatinine Est GFR ( Amer) Glucose Calcium Total Bilirubin AST Alkaline Phosphatase Total Protein Albumin Blood Type Antibody Screen Impressions: Abdomen/Pelvis CT 01/23/20 12:44 IMPRESSION: No acute findings in the abdomen or pelvis. Common bile duct is dilated measuring up to 9.8 mm. No definite stone. Distal stricture cannot be excluded. Further evaluation with MRCP or ERCP may be helpful for further evaluation. 3. Atherosclerotic change of the abdominal aorta. At the diaphragmatic hiatus the diameter is measured at 3.2 x 3.2 cm. Distal aorta measures up to 2.9 x 2.7 cm. Please see below for recommended follow-up. Assessment & Plan - Diagnosis (1) Lower GI bleed Plan: will schedule colonoscopy for the patient in the OR prep overnight transfuse as necessary Risks, benefits and alternatives are explained to the patient in detail will proceed she will need Propofol sedation prep will be written for her - Time Time Spent: 50 to 70 Minutes
[2020-01-23] MEDS ORDERED: GLUCAGON,HUMAN RECOMB 1 MG INJ SUBCUT PRN (17:47)
[2020-01-23] MEDS ORDERED: OXYCODONE-ACETAMINOPHEN 5-325 MG TABLET PO PRN (17:47)
[2020-01-23] MEDS ORDERED: DEXTROSE 40% GEL 15 GM TUBE PO PRN ×2 (17:47)
[2020-01-23] MEDS ORDERED: IPRATROPIUM/ALBUTEROL 0.5-2.5 MG/3 ML AMPUL NEB PRN (17:47)
[2020-01-23] MEDS ORDERED: ZOLPIDEM TARTRATE 5 MG TABLET PO PRN (17:47)
[2020-01-23] MEDS ORDERED: ONDANSETRON HCL INJ/PF 4 MG/2 ML SDV IV PRN (17:47)
[2020-01-23] MEDS ORDERED: DEXTROSE 50%-WATER 25 GM/50 ML DISP.SYRIN IV PRN ×2 (17:47)
[2020-01-23] MEDS ORDERED: ACETAMINOPHEN 325 MG TABLET PO PRN (17:47)
[2020-01-23] MEDS ORDERED: POLYETHYLENE GLYCOL 3350 POWDER 17 GM/1 PACKET PO ONE (18:30)
--- NOTE | 2020-01-23 18:49 | PDOC H&P ---
History of Present Illness Admission Date/PCP: 01/23/20 17:29 DIPESH GILLILAND MD Patient complains of: Bright red bleeding per rectum with no associated nausea vomiting abdominal pain History of Present Illness: CARTER WEINER is a 80 year old female Presents emergency room complains of rectal bleeding. Patient states that she is hungry. She said that she was here a couple of months ago and she was sent to [facility] where she had an upper endoscopy and colonoscopy done. She does not know the results. She denies any abdominal pain. She said she continues to have the rectal bleeding the last was when she was in the ED. Patient denies any dizziness nausea vomiting. She has been seen by GI. Please see GI consultation for full details Past Medical History Cardiac Medical History: Reports: Hyperlipidema, Hypertension Pulmonary Medical History: Reports: Chronic Obstructive Pulmonary Disease (COPD) Musculoskeltal Medical History: Reports: Arthritis Past Surgical History Past Surgical History: Reports: Hysterectomy, Orthopedic Surgery Social History Smoking Status: Former Smoker - Advance Directive Resuscitation Status: Full Code Family History Family History: Reviewed & Not Pertinent Parental Family History Reviewed: No Children Family History Reviewed: No Sibling(s) Family History Reviewed.: No Medication/Allergy Home Medications: Allopurinol [Zyloprim 300 mg Tablet] 300 mg PO DAILY 07/28/19 Amlodipine Besylate [Norvasc 10 mg Tablet] 10 mg PO DAILY 07/28/19 Aspirin [Ecotrin 81 mg EC Tablet] 81 mg PO DAILY 07/28/19 Atenolol 100 mg PO DAILY 07/28/19 Magnesium Oxide [Mag-Ox 400 mg Tablet] 400 mg PO TID 07/28/19 Pravastatin Sodium 20 mg PO DAILY 07/28/19 Ramipril [Altace 10 mg Capsule] 10 mg PO DAILY 07/28/19 Umeclidinium Brm/Vilanterol Tr [Anoro Ellipta 62.5-25 Mcg INH] 1 inh IH DAILY 01/23/20 Allergies/Adverse Reactions: No Known Allergies Allergy (Unverified 07/28/19 14:09) Review of Systems All systems: reviewed and no additional remarkable complaints except as stated Physical Exam Vital Signs: Temp Pulse Resp BP Pulse Ox 97.8 F 26 H 134/71 H 95 01/23/20 11:59 01/23/20 14:29 01/23/20 14:30 01/23/20 14:39 Intake & Output 01/22/20 01/23/20 01/24/20 06:59 06:59 06:59 Weight 67.7 kg General appearance: PRESENT: no acute distress, well-developed, well-nourished Head exam: PRESENT: atraumatic, normocephalic Eye exam: PRESENT: conjunctiva pink, EOMI, PERRLA. ABSENT: scleral icterus Ear exam: PRESENT: normal external ear exam Mouth exam: PRESENT: moist, tongue midline Neck exam: ABSENT: carotid bruit, JVD, lymphadenopathy, thyromegaly Respiratory exam: PRESENT: clear to auscultation amilcar. ABSENT: rales, rhonchi, wheezes Cardiovascular exam: PRESENT: RRR. ABSENT: diastolic murmur, rubs, systolic murmur Pulses: PRESENT: normal dorsalis pedis pul Vascular exam: PRESENT: normal capillary refill GI/Abdominal exam: PRESENT: normal bowel sounds, soft. ABSENT: distended, guard ing, mass, organolmegaly, rebound, tenderness Rectal exam: PRESENT: deferred Extremities exam: PRESENT: full ROM. ABSENT: calf tenderness, clubbing, pedal edema Neurological exam: PRESENT: alert, awake, oriented to person, oriented to place, oriented to time, oriented to situation, CN II-XII grossly intact. ABSENT: motor sensory deficit Psychiatric exam: PRESENT: appropriate affect, normal mood. ABSENT: homicidal ideation, suicidal ideation Skin exam: PRESENT: dry, intact, warm. ABSENT: cyanosis, rash Results Laboratory Results: 01/23/20 14:04 01/23/20 12:05 01/23/20 01/23/20 01/23/20 12:05 12:05 12:05 WBC 4.5 RBC 3.04 L Hgb 10.0 L Hct 29.7 L MCV 98 H MCH 32.8 MCHC 33.5 RDW 17.2 H Plt Count 243 Seg Neutrophils % 59.6 Sodium 137.3 Potassium 4.2 Chloride 106 Carbon Dioxide 26 Anion Gap 5 BUN 23 H Creatinine 1.41 H Est GFR ( Amer) 43 L Glucose 145 H Calcium 8.7 Total Bilirubin 0.3 AST 33 Alkaline Phosphatase 71 Total Protein 5.9 L Albumin 2.8 L Blood Type A POSITIVE Antibody Screen NEGATIVE 01/23/20 14:04 WBC 6.1 RBC 2.83 L Hgb 9.4 L Hct 27.6 L MCV 97 MCH 33.1 MCHC 34.0 RDW 16.9 H Plt Count 220 Seg Neutrophils % 73.4 Sodium Potassium Chloride Carbon Dioxide Anion Gap BUN Creatinine Est GFR ( Amer) Glucose Calcium Total Bilirubin AST Alkaline Phosphatase Total Protein Albumin Blood Type Antibody Screen Impressions: Abdomen/Pelvis CT 01/23/20 12:44 IMPRESSION: No acute findings in the abdomen or pelvis. Common bile duct is dilated measuring up to 9.8 mm. No definite stone. Distal stricture cannot be excluded. Further evaluation with MRCP or ERCP may be helpful for further evaluation. 3. Atherosclerotic change of the abdominal aorta. At the diaphragmatic hiatus the diameter is measured at 3.2 x 3.2 cm. Distal aorta measures up to 2.9 x 2.7 cm. Please see below for recommended follow-up. Assessment and Plan - Diagnosis (1) Anemia Qualifiers: Anemia type: other cause Other causes of anemia: acute posthemorrhagic Qualified Code(s): D62 - Acute posthemorrhagic anemia Is this a current diagnosis for this admission?: Yes Plan: Likely a diverticular bleed (2) Lower GI bleed Is this a current diagnosis for this admission?: Yes Plan: For colonoscopy, appreciate GI input - Plan Summary Summary: GI consult which has been done. Patient will need a colonoscopy once stable. We will continue to monitor H&H. We will transfuse as needed. Patient's blood pressure was initially low but now appears to be relatively stable. We will continue with with proton pump inhibitor - Time Time Spent with patient: 15-24 minutes Anticipated discharge: Home Within: within 48 hours - Inpatient Certification Based on my medical assessment, after consideration of the patient's comorbidities, presenting symptoms, or acuity I expect that the services needed warrant INPATIENT care.: Yes Medical Necessity: Need Close Monitoring Due to Risk of Patient Decompensation, Risk of Complication if Not Cared For in Hospital
[2020-01-23] MEDS: PANTOPRAZOLE SODIUM 40 MG VIAL IV SCH (19:40)
[2020-01-23] MEDS: NORMAL SALINE 1000 ML 1,000 ML IV PRN (20:05)
[2020-01-23 23:03] LABS: HEMATOCRIT 25.2 % (36.0-47.0); HEMOGLOBIN 8.6 g/dL (12.0-15.5); MEAN CORPUSCULAR HEMOGLOBIN 32.9 pg (27.0-33.4); MEAN CORPUSCULAR HGB CONC 33.9 g/dL (32.0-36.0); MEAN CORPUSCULAR VOLUME 97 fl (80-97); PLATELET COUNT 185 10^3/uL (150-450); RED BLOOD COUNT 2.61 10^6/uL (3.72-5.28); RED CELL DISTRIBUTION WIDTH 16.9 % (11.5-14.0); WHITE BLOOD COUNT 6.6 10^3/uL (4.0-10.5)
[2020-01-24] MEDS: PANTOPRAZOLE SODIUM 40 MG VIAL IV SCH ×2 (05:39→17:19)
[2020-01-24] MEDS: NORMAL SALINE 1000 ML 1,000 ML IV PRN ×2 (05:39→21:35)
[2020-01-24 06:53] LABS: BLOOD UREA NITROGEN 23 mg/dL (7-20); GLUCOSE 93 mg/dL (75-110); POTASSIUM 4.2 mmol/L (3.6-5.0)
[2020-01-24 06:58] LABS: CARBON DIOXIDE 25 mmol/L (22-30); CHLORIDE 108 mmol/L (98-107); HEMATOCRIT 22.3 % (36.0-47.0); MEAN CORPUSCULAR HEMOGLOBIN 33.4 pg (27.0-33.4); MEAN CORPUSCULAR HGB CONC 34.3 g/dL (32.0-36.0); MEAN CORPUSCULAR VOLUME 98 fl (80-97); PLATELET COUNT 174 10^3/uL (150-450); RED BLOOD COUNT 2.29 10^6/uL (3.72-5.28); RED CELL DISTRIBUTION WIDTH 16.9 % (11.5-14.0); WHITE BLOOD COUNT 6.1 10^3/uL (4.0-10.5)
[2020-01-24 07:00] LABS: ANION GAP 3 (5-19)
[2020-01-24 07:03] LABS: HEMOGLOBIN 7.7 g/dL (12.0-15.5)
--- NOTE | 2020-01-24 08:42 | EKG REPORT ---
SEVERITY:- ABNORMAL ECG - SINUS RHYTHM PROBABLE ANTEROSEPTAL INFARCT, AGE INDETERM : Confirmed by: Gayla Gerber 24-Jan-2020 08:42:18
--- NOTE | 2020-01-24 08:49 | CDI QUERY ---
CDI Query CDI Review: Dear Provider, Please clarify and document in progress notes and D/C summary if you agree with the clinical findings: ABLA ( acute blood loss anemia) CHRONIC ANEMIA OTHER ANEMIA MONITORING H/H GIB ANEMIA
[2020-01-24] MEDS ORDERED: PROPOFOL INJ 200 MG/20 ML VIAL IV ONE (11:19)
--- NOTE | 2020-01-24 13:50 | Operative Report ---
Operative Report DATE OF SURGERY: 01/24/20 Operative Report: Risk, benefits and alternatives of the procedure including the risk of bleeding, perforation requiring surgery have been explained to the patient in detail and informed consent has been obtained. Patient is taken back to the operating room and placed in left, lateral decubital position. Timeout was called. Propofol medication is administered. Rectal examination is done which did not reveal any masses, tears or fissures. An Olympus videoscope was introduced into the patient's rectum. Scope was then carefully advanced all the way to the cecum. Cecum is identified by the usual anatomical landmarks including the ileocecal valve as well as the appendiceal office. Photodocumentation is obtained. The scope was then sequentially pulled back via the various segments of the colon including the ascending colon, hepatic flexure, transverse colon, splenic flexure, descending colon and finally into the rectosigmoid portions of the colon. Retroflexion maneuver is performed. PREOPERATIVE DIAGNOSIS: Rectal bleeding with documentation of anemia POSTOPERATIVE DIAGNOSIS: Significant diverticular disease both on the left and the right-hand side. No active bleeding noted. Patient likely had a resolved diverticular bleed. Ascending colon polyp that was removed via biopsy forceps. Internal hemorrhoids OPERATION: Colonoscopy with biopsy SURGEON: JUNITO STILES ANESTHESIA: LMAC TISSUE REMOVED OR ALTERED: As noted above. COMPLICATIONS: None. ESTIMATED BLOOD LOSS: None. INTRAOPERATIVE FINDINGS: As noted above. PROCEDURE: Patient tolerated the procedure well. She is sent back to her room in good condition. Resume regular diet as tolerated. Continue to watch H&H. Transfuse if necessary. No active bleeding is noted. If further bleeding noted may need upper endoscopy.
--- NOTE | 2020-01-24 14:51 | PDOC PROGRESS REPORT ---
Subjective Progress Note for:: 01/24/20 Subjective:: Still bleeding per rectum, bright red bleeding Reason For Visit: LOWER GI BLEED,ANEMIA Physical Exam Vital Signs: Temp Pulse Resp BP Pulse Ox 97.8 F 88 20 137/61 H 100 01/24/20 14:27 01/24/20 14:27 01/24/20 14:27 01/24/20 14:27 01/24/20 14:27 Intake & Output 01/23/20 01/24/20 01/25/20 06:59 06:59 06:59 Intake Total 3157 300 Output Total 0 Balance 3157 300 Weight 67.7 kg General appearance: PRESENT: no acute distress, well-developed, other - elderly comfortable female Head exam: PRESENT: atraumatic, normocephalic Eye exam: PRESENT: conjunctiva pink, EOMI, PERRLA. ABSENT: scleral icterus Ear exam: PRESENT: normal external ear exam Mouth exam: PRESENT: moist, tongue midline Neck exam: ABSENT: carotid bruit, JVD, lymphadenopathy, thyromegaly Respiratory exam: PRESENT: clear to auscultation amilcar, unlabored. ABSENT: rales, rhonchi, wheezes Cardiovascular exam: PRESENT: RRR. ABSENT: diastolic murmur, rubs, systolic m urmur Pulses: PRESENT: normal dorsalis pedis pul Vascular exam: PRESENT: normal capillary refill GI/Abdominal exam: PRESENT: normal bowel sounds, soft. ABSENT: distended, guarding, mass, organolmegaly, rebound, tenderness Rectal exam: PRESENT: deferred Extremities exam: PRESENT: full ROM. ABSENT: calf tenderness, clubbing, pedal edema Neurological exam: PRESENT: alert, awake, oriented to person, oriented to place, oriented to time, oriented to situation, CN II-XII grossly intact. ABSENT: motor sensory deficit Psychiatric exam: PRESENT: appropriate affect, normal mood. ABSENT: homicidal ideation, suicidal ideation Skin exam: PRESENT: dry, intact, warm. ABSENT: cyanosis, rash Results Laboratory Results: 01/24/20 06:19 01/24/20 06:19 01/23/20 01/23/20 01/23/20 12:05 14:04 22:46 WBC 6.1 6.6 RBC 2.83 L 2.61 L Hgb 9.4 L 8.6 L Hct 27.6 L 25.2 L MCV 97 97 MCH 33.1 32.9 MCHC 34.0 33.9 RDW 16.9 H 16.9 H Plt Count 220 185 Seg Neutrophils % 73.4 Sodium Potassium Chloride Carbon Dioxide Anion Gap BUN Creatinine Est GFR ( Amer) Glucose Calcium Blood Type A POSITIVE Antibody Screen NEGATIVE 01/24/20 01/24/20 06:19 06:19 WBC 6.1 RBC 2.29 L Hgb 7.7 L Hct 22.3 L MCV 98 H MCH 33.4 MCHC 34.3 RDW 16.9 H Plt Count 174 Seg Neutrophils % Sodium 135.6 L Potassium 4.2 Chloride 108 H Carbon Dioxide 25 Anion Gap 3 L BUN 23 H Creatinine 1.36 H Est GFR ( Amer) 45 L Glucose 93 Calcium 8.0 L Blood Type Antibody Screen Impressions: Abdomen/Pelvis CT 01/23/20 12:44 IMPRESSION: No acute findings in the abdomen or pelvis. Common bile duct is dilated measuring up to 9.8 mm. No definite stone. Distal stricture cannot be excluded. Further evaluation with MRCP or ERCP may be helpful for further evaluation. 3. Atherosclerotic change of the abdominal aorta. At the diaphragmatic hiatus the diameter is measured at 3.2 x 3.2 cm. Distal aorta measures up to 2.9 x 2.7 cm. Please see below for recommended follow-up. Assessment and Plan - Diagnosis (1) Anemia Qualifiers: Anemia type: other cause Other causes of anemia: acute posthemorrhagic Qualified Code(s): D62 - Acute posthemorrhagic anemia Is this a current diagnosis for this admission?: Yes Plan: Patient is status post colonoscopy which revealed significant vascular disease both on the left and the right-hand side no active bleeding noted she likely had a resolved diverticular bleed. She also had an ascending colon polyp that was removed via biopsy forceps. (2) Lower GI bleed Is this a current diagnosis for this admission?: Yes
[2020-01-25] MEDS: PANTOPRAZOLE SODIUM 40 MG VIAL IV SCH ×2 (05:12→17:14)
[2020-01-25 06:49] LABS: ABSOLUTE EOSINOPHILS # (AUTO) 0.3 10^3/uL (0.0-0.6); ABSOLUTE LYMPHOCYTES (AUTO) 1.8 10^3/uL (0.5-4.7); ABSOLUTE MONOCYTES (AUTO) 0.6 10^3/uL (0.1-1.4); BASOPHILS % (AUTO) 0.4 % (0-2); EOSINOPHILS % (AUTO) 4.3 % (0-6); HEMATOCRIT 30.1 % (36.0-47.0); MEAN CORPUSCULAR HEMOGLOBIN 32.5 pg (27.0-33.4); MEAN CORPUSCULAR HGB CONC 34.4 g/dL (32.0-36.0); MONOCYTES % (AUTO) 9.6 % (3-13); PLATELET COUNT 162 10^3/uL (150-450); RED BLOOD COUNT 3.18 10^6/uL (3.72-5.28); RED CELL DISTRIBUTION WIDTH 17.4 % (11.5-14.0); SEGMENTED NEUTROPHILS % (AUTO) 59.7 % (42-78); TOTAL CELLS COUNTED % (AUTO) 100 %; WHITE BLOOD COUNT 6.7 10^3/uL (4.0-10.5)
[2020-01-25 06:52] LABS: MEAN CORPUSCULAR VOLUME 94 fl (80-97)
[2020-01-25 06:54] LABS: HEMOGLOBIN 10.3 g/dL (12.0-15.5)
[2020-01-25 07:04] LABS: ANION GAP 5 (5-19); BLOOD UREA NITROGEN 18 mg/dL (7-20); CALCIUM 8.3 mg/dL (8.4-10.2); CARBON DIOXIDE 24 mmol/L (22-30); CHLORIDE 110 mmol/L (98-107); GLUCOSE 95 mg/dL (75-110); POTASSIUM 3.9 mmol/L (3.6-5.0)
[2020-01-25] MEDS: NORMAL SALINE 1000 ML 1,000 ML IV PRN ×2 (07:50→17:15)
[2020-01-25 13:54] LABS: HEMATOCRIT 28.5 % (36.0-47.0); HEMOGLOBIN 9.7 g/dL (12.0-15.5); MEAN CORPUSCULAR HEMOGLOBIN 32.1 pg (27.0-33.4); MEAN CORPUSCULAR HGB CONC 33.9 g/dL (32.0-36.0); MEAN CORPUSCULAR VOLUME 95 fl (80-97); PLATELET COUNT 154 10^3/uL (150-450); RED BLOOD COUNT 3.01 10^6/uL (3.72-5.28); RED CELL DISTRIBUTION WIDTH 17.3 % (11.5-14.0)
--- NOTE | 2020-01-25 14:59 | PDOC PROGRESS REPORT ---
Subjective Progress Note for:: 01/25/20 Subjective:: Patient is doing better. She denies any abdominal pain or chest pain however she is still having bright red bleeding per rectum. Repeat hemoglobin done shows a slight downward trend but she remains hemodynamically stable. With her being elderly and still having sizable amount of blood I think is reasonable to keep her overnight monitor her to ensure stability prior to discharge home Reason For Visit: LOWER GI BLEED,ANEMIA Physical Exam Vital Signs: Temp Pulse Resp BP Pulse Ox 99.1 F 75 18 133/58 H 94 01/25/20 12:09 01/25/20 14:00 01/25/20 12:09 01/25/20 12:09 01/25/20 12:09 Intake & Output 01/24/20 01/25/20 01/26/20 06:59 06:59 06:59 Intake Total 3157 2410 1000 Output Total 0 Balance 3157 2410 1000 Weight 67.7 kg 67.2 kg General appearance: PRESENT: no acute distress, other - elderly female Head exam: PRESENT: atraumatic, normocephalic Eye exam: PRESENT: conjunctiva pink, PERRLA. ABSENT: scleral icterus Ear exam: PRESENT: normal external ear exam Mouth exam: PRESENT: tongue midline Neck exam: ABSENT: carotid bruit, JVD, lymphadenopathy, thyromegaly Respiratory exam: PRESENT: clear to auscultation amilcar, unlabored. ABSENT: rales, rhonchi, wheezes Cardiovascular exam: PRESENT: RRR, +S1, +S2. ABSENT: diastolic murmur, rubs, systolic murmur Pulses: PRESENT: normal dorsalis pedis pul GI/Abdominal exam: PRESENT: normal bowel sounds, soft. ABSENT: distended, guarding, mass, organolmegaly, rebound, tenderness Rectal exam: PRESENT: deferred Extremities exam: PRESENT: full ROM. ABSENT: calf tenderness, clubbing, pedal edema Neurological exam: PRESENT: alert, awake, oriented to person, oriented to place, oriented to time, oriented to situation, CN II-XII grossly intact. ABSENT: motor sensory deficit Psychiatric exam: PRESENT: appropriate affect, normal mood. ABSENT: homicidal ideation, suicidal ideation Skin exam: PRESENT: dry, intact, warm. ABSENT: cyanosis, rash Results Laboratory Results: 01/25/20 13:45 01/25/20 06:21 01/23/20 01/25/20 01/25/20 12:05 06:21 06:21 WBC 6.7 RBC 3.18 L Hgb 10.3 L D Hct 30.1 L MCV 94 D MCH 32.5 MCHC 34.4 RDW 17.4 H Plt Count 162 Seg Neutrophils % 59.7 Sodium 138.5 Potassium 3.9 Chloride 110 H Carbon Dioxide 24 Anion Gap 5 BUN 18 Creatinine 1.20 Est GFR ( Amer) 52 L Glucose 95 Calcium 8.3 L Blood Type A POSITIVE Antibody Screen NEGATIVE 01/25/20 13:45 WBC 6.0 RBC 3.01 L Hgb 9.7 L Hct 28.5 L MCV 95 MCH 32.1 MCHC 33.9 RDW 17.3 H Plt Count 154 Seg Neutrophils % Sodium Potassium Chloride Carbon Dioxide Anion Gap BUN Creatinine Est GFR ( Amer) Glucose Calcium Blood Type Antibody Screen Impressions: Abdomen/Pelvis CT 01/23/20 12:44 IMPRESSION: No acute findings in the abdomen or pelvis. Common bile duct is dilated measuring up to 9.8 mm. No definite stone. Distal stricture cannot be excluded. Further evaluation with MRCP or ERCP may be helpful for further evaluation. 3. Atherosclerotic change of the abdominal aorta. At the diaphragmatic hiatus the diameter is measured at 3.2 x 3.2 cm. Distal aorta measures up to 2.9 x 2.7 cm. Please see below for recommended follow-up. Assessment and Plan - Diagnosis (1) Anemia Qualifiers: Anemia type: other cause Other causes of anemia: acute posthemorrhagic Qualified Code(s): D62 - Acute posthemorrhagic anemia Is this a current diagnosis for this admission?: Yes Plan: Patient is status post colonoscopy which revealed significant vascular disease both on the left and the right-hand side no active bleeding noted she likely had a resolved diverticular bleed. She also had an ascending colon polyp that was removed via biopsy forceps. 01/24 CHOLO globin stable with a slight downward trend. Will recheck and monitor (2) Lower GI bleed Is this a current diagnosis for this admission?: Yes Plan: likely secondary to diverticular bleed (3) Diverticula of colon Is this a current diagnosis for this admission?: Yes Plan: This is likely etiology of lower GI bleeding, painless (4) Hypertension Is this a current diagnosis for this admission?: Yes Plan: She has been off her antihypertensives. - Inpatient Certification Based on my medical assessment, after consideration of the patient's comorbidities, presenting symptoms, or acuity I expect that the services needed warrant INPATIENT care.: Yes Medical Necessity: Risk of Complication if Not Cared For in Hospital
[2020-01-26] MEDS: NORMAL SALINE 1000 ML 1,000 ML IV PRN (03:58)
[2020-01-26] MEDS: PANTOPRAZOLE SODIUM 40 MG VIAL IV SCH (05:41)
[2020-01-26 06:56] LABS: ABSOLUTE EOSINOPHILS # (AUTO) 0.2 10^3/uL (0.0-0.6); ABSOLUTE LYMPHOCYTES (AUTO) 1.5 10^3/uL (0.5-4.7); ABSOLUTE MONOCYTES (AUTO) 0.7 10^3/uL (0.1-1.4); ABSOLUTE NEUT (AUTO) 3.5 10^3/uL (1.7-8.2); BASOPHILS % (AUTO) 0.7 % (0-2); EOSINOPHILS % (AUTO) 3.6 % (0-6); HEMATOCRIT 28.8 % (36.0-47.0); HEMOGLOBIN 10.1 g/dL (12.0-15.5); LYMPHOCYTES % (AUTO) 25.6 % (13-45); MEAN CORPUSCULAR HEMOGLOBIN 32.8 pg (27.0-33.4); MEAN CORPUSCULAR VOLUME 94 fl (80-97); MONOCYTES % (AUTO) 11.4 % (3-13); PLATELET COUNT 161 10^3/uL (150-450); RED BLOOD COUNT 3.07 10^6/uL (3.72-5.28); RED CELL DISTRIBUTION WIDTH 17.1 % (11.5-14.0); SEGMENTED NEUTROPHILS % (AUTO) 58.7 % (42-78); TOTAL CELLS COUNTED % (AUTO) 100 %; WHITE BLOOD COUNT 5.9 10^3/uL (4.0-10.5)
[2020-01-26 07:13] LABS: ANION GAP 5 (5-19); BLOOD UREA NITROGEN 19 mg/dL (7-20); CALCIUM 8.7 mg/dL (8.4-10.2); CARBON DIOXIDE 26 mmol/L (22-30); CHLORIDE 107 mmol/L (98-107); GLUCOSE 90 mg/dL (75-110); POTASSIUM 3.7 mmol/L (3.6-5.0)
[2020-01-26] MEDS ORDERED: METOPROLOL TARTRATE 25 MG TABLET PO ONE (12:00)
[2020-01-26 13:29] VITALS: BP 139/67
--- NOTE | 2020-01-26 14:12 | PDOC DISCHARGE SUMMARY ---
Impression - Admit/DC Date/PCP Admission Date/Primary Care Provider: 01/23/20 17:29 DIPESH GILLILAND MD Discharge Date: 01/26/20 - Discharge Diagnosis (1) Anemia Is this a current diagnosis for this admission?: Yes (2) Lower GI bleed Is this a current diagnosis for this admission?: Yes (3) Diverticula of colon Is this a current diagnosis for this admission?: Yes (4) Hypertension Is this a current diagnosis for this admission?: Yes - Additional Information Resuscitation Status: Full Code Discharge Diet: Cardiac Discharge Activity: Activity As Tolerated Referrals: DIPESH GILLILAND MD [Primary Care Provider] - 01/29/20 (F/u CBC, medication management and reassessment) Home Medications: Allopurinol [Zyloprim 300 mg Tablet] 300 mg PO DAILY 07/28/19 Atenolol 100 mg PO DAILY 07/28/19 Magnesium Oxide [Mag-Ox 400 mg Tablet] 400 mg PO TID 07/28/19 Pravastatin Sodium 20 mg PO DAILY 07/28/19 Ramipril [Altace 10 mg Capsule] 10 mg PO DAILY 07/28/19 Umeclidinium Brm/Vilanterol Tr [Anoro Ellipta 62.5-25 Mcg INH] 1 inh IH DAILY 01/23/20 History of Present Illiness History of Present Illness: CARTER WEINER is a 80 year old female Presents emergency room complains of rectal bleeding. Patient states that she is hungry. She said that she was here a couple of months ago and she was sent to [facility] where she had an upper endoscopy and colonoscopy done. She does not know the results. She denies any abdominal pain. She said she continues to have the rectal bleeding the last was when she was in the ED. Patient denies any dizziness nausea vomiting. She has been seen by GI. Please see GI consultation for full details Hospital Course Hospital Course: CT scan of the abdomen revealed CBD dilatation with no definite stone. 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 She was also found to have a 3.2 x 3.2 cm abdominal aorta and this can be followed up as outpatient every 3 years as per recommendations. Patient was transfused with 2 units of packed red blood cell while she was in hospital. Her hemoglobin then remained relatively stable. She did still have bright red bleeding per rectum on January 24 and so she was kept in the hospital for further observation. She had no further episodes and she remained hemodynamically stable. She was however noted to be intermittently tachycardic but of note patient had been on atenolol which was stopped on admission due to her borderline hypotension. She received a dose of metoprolol prior to discharge today and she has been advised to restart her atenolol as outpatient. Norvasc is currently on hold and this needs to be reviewed by her physician as a blood pressure is still somewhat normotensive Colonoscopy revealed significant diverticular disease both on the left and right-hand side with no active bleeding noted. Ascending colon polyp was removed via biopsy forceps. Internal hemorrhoids also identified. GI bleeding likely secondary to a resolved diverticular bleed Physical Exam Vital Signs: Temp Pulse Resp BP Pulse Ox 99.1 F 69 18 140/65 H 94 01/25/20 07:58 01/25/20 07:58 01/25/20 07:58 01/25/20 07:58 01/25/20 07:58 Temp Pulse Resp BP Pulse Ox 97.2 F 128 H 18 133/58 H 100 01/26/20 12:16 01/26/20 12:16 01/26/20 12:16 01/26/20 12:16 01/26/20 12:16 Intake & Output 01/24/20 01/25/20 01/26/20 06:59 06:59 06:59 Intake Total 3157 2410 1000 Output Total 0 Balance 3157 2410 1000 Weight 67.7 kg 67.2 kg General appearance: PRESENT: no acute distress Head exam: PRESENT: atraumatic Eye exam: PRESENT: conjunctiva pink, PERRLA. ABSENT: scleral icterus Ear exam: PRESENT: normal external ear exam Mouth exam: PRESENT: moist, tongue midline Neck exam: ABSENT: carotid bruit, JVD, lymphadenopathy, thyromegaly Respiratory exam: PRESENT: clear to auscultation amilcar. ABSENT: rales, rhonchi, wheezes Cardiovascular exam: PRESENT: irregular rhythm, +S1, +S2. ABSENT: diastolic murmur, rubs, systolic murmur Vascular exam: PRESENT: normal capillary refill GI/Abdominal exam: PRESENT: normal bowel sounds, soft. ABSENT: distended, guarding, mass, organolmegaly, rebound, tenderness Rectal exam: PRESENT: deferred Extremities exam: PRESENT: full ROM. ABSENT: calf tenderness, clubbing, pedal edema Neurological exam: PRESENT: alert, awake, oriented to person, oriented to place, oriented to time, oriented to situation, CN II-XII grossly intact. ABSENT: motor sensory deficit Psychiatric exam: PRESENT: appropriate affect, normal mood. ABSENT: homicidal ideation, suicidal ideation Skin exam: PRESENT: dry, intact, warm. ABSENT: cyanosis, rash Results Laboratory Results: WBC 6.7 10^3/uL (4.0-10.5) 01/25/20 06:21 RBC 3.18 10^6/uL (3.72-5.28) L 01/25/20 06:21 Hgb 10.3 g/dL (12.0-15.5) L D 01/25/20 06:21 Hct 30.1 % (36.0-47.0) L 01/25/20 06:21 MCV 94 fl (80-97) D 01/25/20 06:21 MCH 32.5 pg (27.0-33.4) 01/25/20 06:21 MCHC 34.4 g/dL (32.0-36.0) 01/25/20 06:21 RDW 17.4 % (11.5-14.0) H 01/25/20 06:21 Plt Count 162 10^3/uL (150-450) 01/25/20 06:21 Lymph % (Auto) 26.0 % (13-45) 01/25/20 06:21 [place] % (Auto) 9.6 % (3-13) 01/25/20 06:21 Eos % (Auto) 4.3 % (0-6) 01/25/20 06:21 Baso % (Auto) 0.4 % (0-2) 01/25/20 06:21 Absolute Neuts (auto) 4.0 10^3/uL (1.7-8.2) 01/25/20 06:21 Absolute Lymphs (auto) 1.8 10^3/uL (0.5-4.7) 01/25/20 06:21 Absolute Monos (auto) 0.6 10^3/uL (0.1-1.4) 01/25/20 06:21 Absolute Eos (auto) 0.3 10^3/uL (0.0-0.6) 01/25/20 06:21 Absolute Basos (auto) 0.0 10^3/uL (0.0-0.2) 01/25/20 06:21 Seg Neutrophils % 59.7 % (42-78) 01/25/20 06:21 PT 14.5 SEC (11.4-15.4) 01/23/20 12:05 INR 1.12 01/23/20 12:05 APTT 24.6 SEC (23.5-35.8) 01/23/20 12:05 Sodium 138.5 mmol/L (137-145) 01/25/20 06:21 Potassium 3.9 mmol/L (3.6-5.0) 01/25/20 06:21 Chloride 110 mmol/L (98-107) H 01/25/20 06:21 Carbon Dioxide 24 mmol/L (22-30) 01/25/20 06:21 Anion Gap 5 (5-19) 01/25/20 06:21 BUN 18 mg/dL (7-20) 01/25/20 06:21 Creatinine 1.20 mg/dL (0.52-1.25) 01/25/20 06:21 Est GFR ( Amer) 52 (>60) L 01/25/20 06:21 Est GFR (MDRD) Non-Af 43 (>60) L 01/25/20 06:21 Glucose 95 mg/dL (75-110) 01/25/20 06:21 Calcium 8.3 mg/dL (8.4-10.2) L 01/25/20 06:21 Total Bilirubin 0.3 mg/dL (0.2-1.3) 01/23/20 12:05 Direct Bilirubin 0.0 mg/dL (0.0-0.4) 01/23/20 12:05 Neonat Total Bilirubin Not Reportable 01/23/20 12:05 Neonat Direct Bilirubin Not Reportable 01/23/20 12:05 Neonat Indirect Bili Not Reportable 01/23/20 12:05 AST 33 U/L (14-36) 01/23/20 12:05 ALT 11 U/L (<35) 01/23/20 12:05 Alkaline Phosphatase 71 U/L (38-126) 01/23/20 12:05 Total Protein 5.9 g/dL (6.3-8.2) L 01/23/20 12:05 Albumin 2.8 g/dL (3.5-5.0) L 01/23/20 12:05 POC Stool Occult Blood POSITIVE (NEGATIVE) 01/23/20 12:20 Blood Type A POSITIVE 01/23/20 12:05 Blood Type Confirm A POSITIVE 01/23/20 12:05 Antibody Screen NEGATIVE 01/23/20 12:05 Crossmatch See Detail 01/23/20 12:05 EKG Comments: Telemetry showed intermittent sinus tachycardia but no atrial fibrillation Impressions: Abdomen/Pelvis CT 01/23/20 12:44 IMPRESSION: No acute findings in the abdomen or pelvis. Common bile duct is dilated measuring up to 9.8 mm. No definite stone. Distal stricture cannot be excluded. Further evaluation with MRCP or ERCP may be helpful for further evaluation. 3. Atherosclerotic change of the abdominal aorta. At the diaphragmatic hiatus the diameter is measured at 3.2 x 3.2 cm. Distal aorta measures up to 2.9 x 2.7 cm. Please see below for recommended follow-up. Plan Health Concerns: Medication management and adjustment, Aspirin is currently on hold but this can be restarted if clinically warranted. Stroke Is this a Stroke Patient?: No Acute Heart Failure - Is this a Heart Failure Patient?: No
== END 2020-01-26 13:30 | disposition home or self-care (01) | DRG 378 ==
LOC: ER 11:58 → EH 17:29 → 3S 20:05
PROVIDERS: ADMIT Internal Medicine; ATTEND Internal Medicine
PROC: 30233N1 Transfusion of Nonautologous Red Blood Cells into Peripheral Vein, Percutaneous Approach (ICD-10-PCS; 2020-01-24)
PROC: 0DBK8ZX Excision of Ascending Colon, Via Natural or Artificial Opening Endoscopic, Diagnostic (ICD-10-PCS; principal; 2020-01-24 14:15)
DX: K57.31 Diverticulosis of large intestine without perforation or abscess with bleeding (principal); D62 Acute posthemorrhagic anemia; K64.8 Other hemorrhoids; K63.5 Polyp of colon; E78.5 Hyperlipidemia, unspecified; J44.9 Chronic obstructive pulmonary disease, unspecified; I95.89 Other hypotension; E78.00 Pure hypercholesterolemia, unspecified; Z87.891 Personal history of nicotine dependence; Z79.899 Other long term (current) drug therapy; Z79.82 Long term (current) use of aspirin
CPT/HCPCS: 36415; 36430; 45380; 74177; 80048; 80053; 811; 82270; 85025; 85027; 85610; 85730; 86850; 86900; 86901; 86920; 88305; 93005; 93010; 96360; 96361; 99140; 99291; C9113; J2405; J2704; J3490; J7030; P9016

== ENCOUNTER 2020-07-03 12:36 | Emergency (ER) | payer MEDICARE ==
--- NOTE | 2020-07-03 12:55 | ER Document Report ---
ED Medical Screen (RME) - General Stated Complaint: TROUBLE BREATHING WHILE WALKING Time Seen by Provider: 07/03/20 12:41 Primary Care Provider: DIPESH GILLILAND MD [Primary Care Provider] - Follow up as needed TRAVEL OUTSIDE OF THE [place] IN LAST 30 DAYS: No - HPI Notes: 07/03/20 12:53 80-year-old female with past medical history for hypertension, lower GI bleed, chronic kidney disease stage III to the emergency department with complaints of exertional chest pain every time she walks. She states she will walk just only a couple steps and she will start to feel tightness in her chest and feel like she is going to pass out. She states that she can sit down and it resolves fairly quickly. However she typically does for herself and she has not been able to do for herself because of the symptoms. She does admit that the symptoms have been going on for about 2 months. She denies any symptoms of true shortness of breath. She denies any leg swelling. She states she is never had a heart attack. She is not a smoker. She does not use drugs. I performed a brief medical screening exam on the patient determined that the patient needs further evaluation and management by main side provider. I have placed initial orders to help expedite care. - Related Data Allergies/Adverse Reactions: No Known Allergies Allergy (Unverified 07/28/19 14:09) Past Medical History - Social History Family history: Arthritis, DM, Hyperlipidemia, Hypertension, Malignancy - Past Medical History Cardiac Medical History: Reports: Hx Hypercholesterolemia, Hx Hypertension Pulmonary Medical History: Reports: Hx COPD Musculoskeltal Medical History: Reports Hx Arthritis Psychiatric Medical History: Denies: Hx Depression Traumatic Medical History: Reports: Hx Fractures Past Surgical History: Reports: Hx Hysterectomy, Hx Orthopedic Surgery - Immunizations Immunizations up to date: Yes Hx Diphtheria, Pertussis, Tetanus Vaccination: Yes Physical Exam - Vital signs Vitals: Temp Pulse Resp BP Pulse Ox 98.2 F 60 20 151/72 H 99 07/03/20 12:45 07/03/20 12:45 07/03/20 12:45 07/03/20 12:45 07/03/20 12:45 Course - Vital Signs Vital signs: Temp Pulse Resp BP Pulse Ox 98.2 F 60 20 151/72 H 99 07/03/20 12:45 07/03/20 12:45 07/03/20 12:45 07/03/20 12:45 07/03/20 12:45 Doctor's Discharge - Discharge Referrals: DIPESH GILLILAND MD [Primary Care Provider] - Follow up as needed
--- NOTE | 2020-07-03 13:36 | RADIOLOGY REPORT (SQ) ---
EXAM DESCRIPTION: CHEST SINGLE VIEW IMAGES COMPLETED DATE/TIME: 07/03/2020 1:23 pm REASON FOR STUDY: exertional chest pain COMPARISON: CT of the chest with contrast from 10/19/2019. EXAM PARAMETERS: NUMBER OF VIEWS: One view. TECHNIQUE: An AP view of the chest was obtained. RADIATION DOSE: NA LIMITATIONS: None. FINDINGS: LUNGS AND PLEURA: No consolidation, pleural effusion or pneumothorax. MEDIASTINUM AND HILAR STRUCTURES: No mediastinal or hilar contour abnormality. HEART AND VASCULAR STRUCTURES: The cardiac silhouette is enlarged. BONES: No acute findings. HARDWARE: None in the chest. OTHER: No other finding. IMPRESSION: Mild cardiomegaly without a superimposed acute cardiopulmonary process. TECHNICAL DOCUMENTATION: JOB ID: [id number] 2010 Last 2 Left- All Rights Reserved Reading location - IP/workstation name: [email or web address]
[2020-07-03 13:54] LABS: ABSOLUTE EOSINOPHILS # (AUTO) 0.1 10^3/uL (0.0-0.6); ABSOLUTE LYMPHOCYTES (AUTO) 0.9 10^3/uL (0.5-4.7); ABSOLUTE MONOCYTES (AUTO) 0.4 10^3/uL (0.1-1.4); ABSOLUTE NEUT (AUTO) 2.7 10^3/uL (1.7-8.2); BASOPHILS % (AUTO) 0.8 % (0-2); EOSINOPHILS % (AUTO) 2.1 % (0-6); HEMATOCRIT 34.9 % (36.0-47.0); HEMOGLOBIN 11.8 g/dL (12.0-15.5); LYMPHOCYTES % (AUTO) 22.9 % (13-45); MEAN CORPUSCULAR HEMOGLOBIN 32.1 pg (27.0-33.4); MEAN CORPUSCULAR HGB CONC 33.7 g/dL (32.0-36.0); MEAN CORPUSCULAR VOLUME 96 fl (80-97); MONOCYTES % (AUTO) 9.8 % (3-13); PLATELET COUNT 291 10^3/uL (150-450); RED BLOOD COUNT 3.66 10^6/uL (3.72-5.28); RED CELL DISTRIBUTION WIDTH 16.7 % (11.5-14.0); SEGMENTED NEUTROPHILS % (AUTO) 64.4 % (42-78); TOTAL CELLS COUNTED % (AUTO) 100 %; WHITE BLOOD COUNT 4.1 10^3/uL (4.0-10.5)
[2020-07-03 14:01] LABS: INTERNATIONAL RATION (INR) 0.97; PROTHROMBIN TIME 13.1 SEC (11.4-15.4)
[2020-07-03 14:02] LABS: PARTIAL THROMBOPLASTIN TIME 31.1 SEC (23.5-35.8)
[2020-07-03 14:20] LABS: ALBUMIN 3.6 g/dL (3.5-5.0); ALKALINE PHOSPHATASE 126 U/L (38-126); ANION GAP 9 (5-19); ASPARTATE AMINO TRANSFERASE 42 U/L (14-36); BILIRUBIN,DIRECT 0.3 mg/dL (0.0-0.4); BILIRUBIN,TOTAL 0.6 mg/dL (0.2-1.3); BLOOD UREA NITROGEN 21 mg/dL (7-20); CALCIUM 9.4 mg/dL (8.4-10.2); CARBON DIOXIDE 30 mmol/L (22-30); CHLORIDE 102 mmol/L (98-107); GLUCOSE 88 mg/dL (75-110); POTASSIUM 3.8 mmol/L (3.6-5.0); TOTAL PROTEIN 7.5 g/dL (6.3-8.2)
[2020-07-03 14:32] LABS: NT PRO BNP 2210 pg/mL (<450); TROPONIN I < 0.012 ng/mL
--- NOTE | 2020-07-03 14:42 | ER Document Report ---
ED General - General Chief Complaint: COPD Exacerbation Stated Complaint: TROUBLE BREATHING WHILE WALKING Time Seen by Provider: 07/03/20 12:41 Primary Care Provider: DIPESH GILLILAND MD [Primary Care Provider] - Follow up as needed Mode of Arrival: Ambulatory Information source: Patient Notes: Patient is an 80-year-old -[place] female with history of COPD, hypertension, hyperlipidemia who comes in today with chief complaint of feeling near syncopal when she exerts even for a little bit. States that she can walk a very short distance and she can feel like she is about to pass out. She denies having any chest pain when this happens. She reports that her doctor put her on home oxygen but she does not note whether she uses it constantly or just epi sodically. TRAVEL OUTSIDE OF THE [place] IN LAST 30 DAYS: No - Related Data Allergies/Adverse Reactions: No Known Allergies Allergy (Unverified 07/28/19 14:09) Past Medical History - Social History Smoking Status: Current Some Day Smoker Family History: Reviewed & Not Pertinent - Past Medical History Cardiac Medical History: Reports: Hx Hypercholesterolemia, Hx Hypertension Pulmonary Medical History: Reports: Hx COPD Musculoskeletal Medical History: Reports Hx Arthritis Psychiatric Medical History: Denies: Hx Depression Traumatic Medical History: Reports: Hx Fractures Past Surgical History: Reports: Hx Hysterectomy, Hx Orthopedic Surgery - Immunizations Immunizations up to date: Yes Hx Diphtheria, Pertussis, Tetanus Vaccination: Yes Review of Systems - Review of Systems Notes: Constitutional: No fevers. No chills. EENT: No eye redness. No eye pain. No ear pain. No sore throat. Cardiovascular: No chest pain. No palpitations. Respiratory: No cough. No shortness of breath. No respiratory distress. Gastrointestinal: No abdominal pain. No nausea, vomiting, or diarrhea. Genitourinary: Atraumatic. No lesions. No pain. No discharge. Musculoskeletal: Atraumatic. No swelling. No deformities. Skin: No rash or lesions. Lymphatic: No swollen lymph nodes. Neurologic: No headache. + Near syncope Psychiatric: No suicidal or homicidal ideation. Physical Exam - Vital signs Vitals: Temp Pulse Resp BP Pulse Ox 98.2 F 60 20 151/72 H 99 07/03/20 12:45 07/03/20 12:45 07/03/20 12:45 07/03/20 12:45 07/03/20 12:45 - Notes Notes: General: Well-developed, well-nourished. In no acute distress. Non-toxic appearing. Cardiac: Well-perfused. Regular rate and rhythm. No murmurs, rubs, or gallops. Pulmonary: No respiratory distress. No cyanosis. Bilateral lung galindo are diminished Abdominal: Non-distended. Non-rigid. Bowels sounds are present in all four quadrants. No guarding or rebound. HEENT: Head is atraumatic. Conjunctivae not reddened. No tearing. PERRL. EOMI. Orbits atraumatic. No periorbital swelling or erythema. Oropharynx is without erythema, swelling, or exudates. Neck: Supple. No adenopathy. No meningismus. Dermatologic: Warm with good turgor. No rash. Atraumatic. Chest: Atraumatic. No chest wall tenderness to palpation. Musculoskeletal: Moves all extremities well. No range of motion deficits. no muscular or joint tenderness. No paraspinal muscle tenderness. no midline spinal tenderness or step-off. Genitourinary: Examination deferred Neurologic: No gross neurologic deficits. Psychiatric: Normal mood. Course - Re-evaluation Re-evalutation: 07/03/20 14:41 Usual cardiopulmonary work-up has been started. Patient symptoms sound either as a result of hypoxia with exertion without her oxygen or possibly an anginal equivalent. We will go ahead and ambulate her without oxygen to see if she has a sudden drop in oxygen levels or if she becomes tachycardic or profoundly dyspneic. 07/03/20 16:17 Patient apparently got up out of bed and I did an ambulation trial without oxygen and maintained an oxygen saturation of no lower than 98% all the way down the back hallway and back. He did not become tachycardic. She did not become presyncopal. Her baseline work-up here is negative. I think she would benefit from close follow-up with her primary care doctor. Recommend to her that she se e her primary care doctor 1 to 2 days. If t.he symptoms get worse in the meantime she can return to the hospital - Vital Signs Vital signs: Temp Pulse Resp BP Pulse Ox 98.2 F 60 20 151/72 H 99 07/03/20 12:45 07/03/20 12:45 07/03/20 12:45 07/03/20 12:45 07/03/20 12:45 - Laboratory Result Diagrams: 07/03/20 13:01 07/03/20 13:01 Laboratory results interpreted by me: 07/03/20 07/03/20 07/03/20 13:01 13:01 13:01 RBC 3.66 L Hgb 11.8 L Hct 34.9 L RDW 16.7 H BUN 21 H Est GFR ( Amer) 55 L Est GFR (MDRD) Non-Af 46 L AST 42 H NT-Pro-B Natriuret Pep 2210 H - Diagnostic Test Radiology reviewed: Reports reviewed - EKG Interpretation by Me EKG shows normal: Sinus rhythm Rate: Bradycardia Additional EKG results interpreted by me: 07/03/20 16:[address] elevations or depressions Discharge - Discharge Clinical Impression: Near syncope, Elevated blood pressure reading, History of COPD Condition: Good Disposition: HOME, SELF-CARE Instructions: Near Syncopal Episode ([facility]) Additional Instructions: Your work-up here in the emergency department does not show any acute disease. I do believe you would benefit from close follow-up with your primary care doctor. You may need additional testing to figure out what is happening. If you start to have worsening symptoms, please do not hesitate to call 911 or return to the emergency department. Please call your primary care doctor first thing in the morning to arrange follow-up in the next 1 to 2 days. Referrals: DIPESH GILLILAND MD [Primary Care Provider] - Follow up tomorrow
--- NOTE | 2020-07-03 16:35 | EKG REPORT ---
SEVERITY:- ABNORMAL ECG - SINUS RHYTHM CONSIDER ANTEROSEPTAL INFARCT : Confirmed by: Freeman Ramos MD 03-Jul-2020 16:34:52
[2020-07-03 16:40] VITALS: BP 168/75
== END 2020-07-03 16:39 | disposition home or self-care (01) ==
LOC: ER 12:36
DX: R55 Syncope and collapse (principal); J44.9 Chronic obstructive pulmonary disease, unspecified; I10 Essential (primary) hypertension; F17.200 Nicotine dependence, unspecified, uncomplicated; Z99.81 Dependence on supplemental oxygen
CPT/HCPCS: 36415; 71045; 80053; 83735; 83880; 84484; 85025; 85610; 85730; 93005; 93010; 99285

== ENCOUNTER → 2020-07-18 | Outpatient (CLI) | payer MEDICARE ==
[~2020-07-18] MED LIST: AMINOPHYLLINE INJ/PF 250 MG/10 ML SDV IV ONE; REGADENOSON INJ 0.4 MG/5 ML DISP.SYRIN IV ONE
--- NOTE | 2020-07-18 19:13 | DRAGON STRESS TEST REPORT ---
INTRAVENOUS LEXISCAN CARDIOLITE STRESS TEST USING SINGLE PHOTON EMMISION COMPUTERIZED TOMOGRAPHIC. DATE OF PROCEDURE: July 18, 2020. INDICATION : Shortness of breath CARDIAC RISK FACTORS: Hypertension RESTING EKG: Sinus rhythm with minor nonspecific T wave changes STRESS EKG: No significant ST segment changes noted with LexiScan bolus REASON FOR TERMINATION: Protocol. PROCEDURE REPORT: Baseline heart rate 60 beats per minute with blood pressure of 150/63. Patient had no significant complaints. Patient was bolused with Lexiscan 0.4 mg intravenously followed by saline bolus. Heart rate at 2 minutes post bolus 83 with a blood pressure of 146/71. 3 minutes post bolus heart rate 64 with blood pressure of 143/69. No significant EKG changes were noted. Patient had no significant complaints during the procedure or postprocedure. CONCLUSIONS: Normal EKG and hemodynamic response to IV LexiScan. NUCLEAR DATA: At rest the patient was given 10.58 millicuries of technetium 99 sestamibi injected intravenously. As per protocol rest gated SPECT images were obtained. On day of stress test, the patient was given intravenous LexiScan at a dose of 0.4 mg in 5 mL intravenously, followed by flush with normal saline. Subsequently the stress dose of 30.9 millicuries of technetium 99 sestamibi was injected intravenously. As per protocol stress gated images were obtained. NUCLEAR INTERPRETATION: Both raw and processed data were used for interpretation. Visual, qualitative, computer-generated quantitative data was used. There was good myocardial uptake of technetium compound. Motion artifact and soft tissue attenuations were noted. Increased visceral uptake was noted. There was superimposition of liver and visceral uptake on the inferior myocardium. Inferior wall perfusion cannot be accurately commented upon but mild perfusion defect noted in the basal inferior wall. SDS is only 1 therefore probably not significant. Cannot rule out an area of mild ischemia. No other definitive areas of transient perfusion defect noted, No definitive areas of fixed perfusion defect or scars noted. EKG gated imaging showed LV EF at 53%, rest and stress gated EF similar visually. T. I D. ratio was 1.04. Lung heart ratio noted to be within normal limits 0.27. No significant extracardiac and abnormal radiotracer activities were noted. RV free wall uptake was noted to be WNL. IMPRESSION: Also refer to comments under nuclear interpretation. Also test results needs to be interpreted in the context of pretest probability. 1. No definitive areas of transient perfusion defect noted except for a small area of mild ischemia in the basal inferior wall. Please refer to comments under nuclear interpretation. 2. There is no definitive scintigraphic evidence of myocardial infarction/scar. 3. EKG gated imaging shows left ventricular ejection fraction of approx. 53%. 4. Clinical correlation requested as worse disease and or balanced ischemia could be missed. In approximately 10% of the cases Lexiscan may not cause adequate vasodilatory stress. RECOMMENDATIONS: Aggressive risk factor modification and medical management. Further evaluation may be needed if continued symptoms or other high risk indicators are noted on clinical evaluation. May consider cardiac CTA or stress echo if clinically indicated. Close cardiology follow-up is also recommended. Clinical correlation with echocardiogram derived ejection fraction. Inability to exercise by itself can lead to increased cardiovascular event risks. Consider cardiology consultation and or follow-up if clinically indicated. I am available for cardiology evaluation and consultation if requested by the field support rep, unless patient already has a restaurant crew person. Dr. Remi Gerber. MRCP Board certified in cardiology and sleep medicine. Board certified in nuclear cardiology, adult echocardiography. YVETTE
== END ==
LOC: RAD 08:45
PROVIDERS: ATTEND Internal Medicine
DX: R06.00 Dyspnea, unspecified (principal); I27.20 Pulmonary hypertension, unspecified
CPT/HCPCS: 93017; 78452; A9500; J2785; J0280; Q9969

== ENCOUNTER → 2020-08-12 | Outpatient (CLI) | payer MEDICARE ==
[2020-08-12 13:59] LABS: ABSOLUTE EOSINOPHILS # (AUTO) 0.1 10^3/uL (0.0-0.6); ABSOLUTE LYMPHOCYTES (AUTO) 1.4 10^3/uL (0.5-4.7); ABSOLUTE MONOCYTES (AUTO) 0.5 10^3/uL (0.1-1.4); ABSOLUTE NEUT (AUTO) 1.9 10^3/uL (1.7-8.2); EOSINOPHILS % (AUTO) 1.6 % (0-6); HEMATOCRIT 32.9 % (36.0-47.0); HEMOGLOBIN 10.8 g/dL (12.0-15.5); LYMPHOCYTES % (AUTO) 35.7 % (13-45); MEAN CORPUSCULAR HEMOGLOBIN 31.5 pg (27.0-33.4); MEAN CORPUSCULAR HGB CONC 32.8 g/dL (32.0-36.0); MEAN CORPUSCULAR VOLUME 96 fl (80-97); MONOCYTES % (AUTO) 12.7 % (3-13); PLATELET COUNT 295 10^3/uL (150-450); RED BLOOD COUNT 3.42 10^6/uL (3.72-5.28); RED CELL DISTRIBUTION WIDTH 16.8 % (11.5-14.0); TOTAL CELLS COUNTED % (AUTO) 100 %; WHITE BLOOD COUNT 3.8 10^3/uL (4.0-10.5)
[2020-08-12 14:17] LABS: ALBUMIN 3.7 g/dL (3.5-5.0); ALKALINE PHOSPHATASE 121 U/L (38-126); AMYLASE 125 U/L (30-110); ANION GAP 9 (5-19); ASPARTATE AMINO TRANSFERASE 39 U/L (14-36); BILIRUBIN,DIRECT 0.1 mg/dL (0.0-0.4); BILIRUBIN,TOTAL 0.3 mg/dL (0.2-1.3); BLOOD UREA NITROGEN 18 mg/dL (7-20); CALCIUM 9.8 mg/dL (8.4-10.2); CARBON DIOXIDE 29 mmol/L (22-30); CHLORIDE 104 mmol/L (98-107); GLUCOSE 102 mg/dL (75-110); TOTAL PROTEIN 7.8 g/dL (6.3-8.2)
== END ==
LOC: OD 12:50
PROVIDERS: ATTEND Internal Medicine
DX: R10.9 Unspecified abdominal pain (principal); J44.9 Chronic obstructive pulmonary disease, unspecified; R53.83 Other fatigue
CPT/HCPCS: 36415; 80053; 82150; 83690; 84443; 85025